=== PATIENT | female | born 1960 | race African-American/Black ===

== ENCOUNTER 2016-08-08 11:25 | Emergency (ER) | payer OTHER ==
[2016-08-08 11:37] VITALS: BP 136/89
--- NOTE | 2016-08-08 12:30 | XRAY Preliminary Report ---
Exam: XR Ribs 2 View LT IMPRESSION: No rib fracture identified. [facility] SITE ID: [id number]
--- NOTE | 2016-08-08 12:33 | XRAY Report ---
EXAM: BILATERAL RIB RADIOGRAPHY EXAM DATE: 08/08/2016 12:01 PM. CLINICAL HISTORY: Left chest wall trauma.? Rib fracture. COMPARISON: None. TECHNIQUE: 3 views. FINDINGS: Bones: Normal. No fracture or bone lesion. Lungs: No focal opacities evident. No pneumothorax or pleural effusions. Mediastinum: Heart and cardiomediastinal contours are unremarkable. Other: None. IMPRESSION: No rib fracture identified. [facility] Referring Provider Line: [phone] SITE ID: [id number]
--- NOTE | 2016-08-08 13:47 | ED Physician Documentation ---
PD HPI TRUNK INJURY - Stated complaint Stated Complaint: LEFT SIDE PX - Chief complaint Chief Complaint: General - History obtained from History obtained from: Patient - History of Present Illness Location: Left chest Type of injury: Blunt / blow Timing - onset: How many days ago (4) Timing - duration: Days (4) Timing - details: Abrupt onset, Still present Quality: Pain, Sharp Improved by: Rest Worsened by: Moving, Palpating, Other (inspiration) Associated symtptoms: No: Weakness, Numbness, Tingling, Swelling, Discoloration , Feel faint, Syncope Where injury occured: Home Similar symptoms before: Has not had sx before Recently seen: Not recently seen - Additional information Additional information: 56 y/o female struck her left side on a dresser about 4 days ago and this morning she developed worse pain and pain with inspiration. She has not had abdominal pain. Review of Systems Constitutional: denies: Fever Eyes: denies: Decreased vision Ears: denies: Ear pain Nose: denies: Congestion Throat: denies: Sore throat Cardiac: reports: Chest pain / pressure. 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 - Present Medications Home Medications: Ambulatory Orders Medication Instructions Recorded Confirmed Aspirin [Romero] 1 tab PO DAILY 12/17/13 08/08/16 Metoprolol Tartrate [Metoprolol 12.5 mg PO BID 08/08/16 08/08/16 Tartrate] - Allergies Allergies/Adverse Reactions: Allergies Allergy/AdvReac Type Severity Reaction Status Date / Time celecoxib [From Celebrex] Allergy Unknown Verified 08/08/16 11:37 hydrochlorothiazide Allergy Headache Verified 08/08/16 11:37 - Social History Does the pt smoke?: No Smoking Status: Never smoker Does the pt drink ETOH?: No Does the pt have substance abuse?: No - Immunizations Immunizations are current?: Yes - POLST Patient has POLST: No PD ED PE NORMAL - Vitals Vital signs reviewed: Yes (hypertension ) - General General: Alert and oriented X 3, No acute distress, Well developed/nourished - HEENT HEENT: Atraumatic, PERRL - Neck Neck: Supple, no meningeal sign, No bony TTP - Cardiac Cardiac: RRR, No murmur - Respiratory Respiratory: No respiratory distress, Clear bilaterally, Other (There is specific point tenderness to the left lateral chest wall over a specific rib ) - Abdomen Abdomen: Soft, Non tender - Back Back: No CVA TTP, No spinal TTP - Derm Derm: Normal color, Warm and dry, No rash - Psych Psych: Normal mood, Normal affect Results - Vitals Vitals: Vital Signs - 24 hr 08/08/16 11:35 Temperature 36 C L Heart Rate 71 Respiratory 14 Rate Blood Pressure 136/89 H O2 Saturation 100 Oxygen O2 Source Room air - Rads (name of study) chest with ribs Radiology: Prelim report reviewed (IMPRESSION: No rib fracture identified), EMP read indepedently, See rad report PD MEDICAL DECISION MAKING - ED course Complexity details: reviewed results, re-evaluated patient, considered differential, d/w patient ED course: 56 y/o female with a chest wall contusion four days ago has worse pain today predictably and no rib fracture she is treated with decadron after examination and will take nsaids at home as needed. Departure - Departure Disposition: 01 Home, Self Care Clinical Impression: Chest wall contusion Qualifiers: Encounter type: initial encounter Laterality: left Qualified Code(s): S20.212A - Contusion of left front wall of thorax, initial encounter Condition: Stable Instructions: ED Contusion Chest Wall Follow-Up: Vickie Stauffer MD [Primary Care Provider] -
[2016-08-08] MEDS ORDERED: DEXAMETHASONE 10 MG/ML VIAL PO STA (13:48)
== END 2016-08-08 14:04 | disposition home or self-care (01) ==
LOC: ED 11:25
DX: S20.212A Contusion of left front wall of thorax, initial encounter (principal); W22.8XXA Striking against or struck by other objects, initial encounter; I10 Essential (primary) hypertension; E78.00 Pure hypercholesterolemia, unspecified; Z79.82 Long term (current) use of aspirin; Z90.49 Acquired absence of other specified parts of digestive tract; Z90.710 Acquired absence of both cervix and uterus; Z96.649 Presence of unspecified artificial hip joint
CPT/HCPCS: 99283

== ENCOUNTER 2016-10-27 12:50 | Outpatient (CLI) | payer OTHER ==
--- NOTE | 2016-10-27 18:14 | MRI Report ---
EXAM: RIGHT CALF/TIBIA MRI WITHOUT CONTRAST EXAM DATE: 10/27/2016 01:56 PM. CLINICAL HISTORY: Swelling, mass, lump in the right lower leg. COMPARISON: None. TECHNIQUE: Multiplanar, multisequence T1-weighted and fluid-sensitive sequences of the calf/tibia wit hout contrast. Other: None. FINDINGS: Bones: No fractures or subluxations. No marrow edema. No bone lesions. Joint Spaces: Visualized portions of the ankle and knee joints are unremarkable. Tendons: Where visualized, the Achilles and plantaris tendons are intact. Musculature: No edema or fatty atrophy. Other: Just medial to the location of the marker is a small 4 mm T1 hypointense and T2 hyperintense n odule within the subcutaneous tissues (series 41, image 24). IMPRESSION: 4 mm hypointense subcutaneous nodule near the site of palpable abnormality. This may reflect an area of fibrosis or fat necrosis. Further imaging with contrast and a smaller [id number] is only recomm ended if this lesion enlarges and causes pain. [facility] MUSCULOSKELETAL [facility]IOLOGY SECTION Referring Provider Line: [phone] SITE ID: [id number]
== END 2016-10-27 12:51 | disposition home or self-care (01) ==
LOC: DI 12:50
PROVIDERS: ATTEND Nurse Practitioner Family
DX: R22.41 Localized swelling, mass and lump, right lower limb (principal)

== ENCOUNTER 2017-08-06 11:57 | Emergency (ER) | payer OTHER ==
--- NOTE | 2017-08-06 13:39 | ED Physician Documentation ---
PD HPI CHEST PAIN - Stated complaint Stated Complaint: CHEST PX/DIZZY - Chief complaint Chief Complaint: Cardiac - History obtained from History obtained from: Patient - History of Present Illness Timing - onset: Yesterday Timing - onset during: Light activity Timing - duration: Days (1) Timing - details: Gradual onset, Waxing and waning Quality: Aching, Stabbing Location: Substernal, Epigastric Radiation: Back Worsened by: Eating. No: Exertion, Inspiration Associated symptoms: Nausea. No: Shortness of air, Vomiting, Feeling faint / dizzy, Palpitations Similar symptoms before: Diagnosis (feels similar to her gallbladder problem, but is s/p CCY) Recently seen: Not recently seen Review of Systems Constitutional: denies: Fever, Chills, Myalgias Nose: denies: Rhinorrhea / runny nose, Congestion Throat: denies: Sore throat Cardiac: reports: Chest pain / pressure. denies: Palpitations, Pedal edema, Calf pain Respiratory: denies: Cough GI: reports: Abdominal Pain, Nausea. denies: Vomiting, Diarrhea : denies: Dysuria, Frequency Skin: denies: Rash, Lesions Musculoskeletal: denies: Extremity swelling Neurologic: reports: Generalized weakness. 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 - Present Medications Home Medications: Ambulatory Orders Medication Instructions Recorded Confirmed Aspirin [Romero] 1 tab PO DAILY 12/17/13 08/08/16 Metoprolol Tartrate [Metoprolol 12.5 mg PO BID 08/08/16 08/08/16 Tartrate] Lidocaine Viscous 2% [Xylocaine 5 ml PO Q4H PRN #1 bottle 08/06/17 Viscous 2%] raNITIdine [Zantac] 150 mg PO DAILY #30 tablet 08/06/17 - Allergies Allergies/Adverse Reactions: Allergies Allergy/AdvReac Type Severity Reaction Status Date / Time celecoxib [From Celebrex] Allergy Unknown Verified 08/08/16 11:37 hydrochlorothiazide Allergy Headache Verified 08/08/16 11:37 - Social History Does the pt smoke?: No Smoking Status: Never smoker Does the pt drink ETOH?: No Does the pt have substance abuse?: No - Immunizations Immunizations are current?: Yes - POLST Patient has POLST: No PD ED PE NORMAL - Vitals Vital signs reviewed: Yes - General General: Alert and oriented X 3, No acute distress, Well developed/nourished - HEENT HEENT: Ears normal, Pharynx benign - Neck Neck: Supple, no meningeal sign, No adenopathy - Cardiac Cardiac: RRR, No murmur - Respiratory Respiratory: Clear bilaterally - Abdomen Abdomen: Normal bowel sounds, Soft, Non distended, No organomegaly, Other (some tenderness epigastric area) - Female Female : Deferred - Rectal Rectal: Deferred - Back Back: No CVA TTP - Derm Derm: Normal color, Warm and dry - Extremities Extremities: No deformity, No tenderness to palpate, Normal ROM s pain, No edema , No calf tenderness / cord - Neuro Neuro: Alert and oriented X 3, No motor deficit, Normal speech Results - Vitals Vitals: Vital Signs - 24 hr 08/06/17 08/06/17 12:05 15:43 Temperature 36.4 C L Heart Rate 73 70 Respiratory 16 16 Rate Blood Pressure 146/98 H 140/88 H O2 Saturation 100 100 Oxygen O2 Source Room air - EKG (time done) 12:05 Rate: Rate (enter#) (71) Rhythm: NSR [place]: Normal Intervals: Normal CT QRS: Normal Ischemia: Normal ST segments. No: ST elevation c/w ischemia, ST depression - Labs Labs: Laboratory Tests 08/06/17 08/06/17 08/06/17 14:40 14:40 14:40 WBC 4.0 L RBC 4.63 Hgb 13.2 Hct 40.0 MCV 86.4 MCH 28.5 MCHC 33.0 RDW 14.3 Plt Count 144 MPV 8.9 Neut # 1.4 L Lymph # 2.0 [place] # 0.4 Eos # 0.1 Baso # 0.0 Absolute Nucleated RBC 0.00 Nucleated RBC % 0.0 Sodium 137 Potassium 3.7 Chloride 102 Carbon Dioxide 30 Anion Gap 5.0 L BUN 10 Creatinine 0.7 Estimated GFR (MDRD) 105 Glucose 91 Calcium 9.6 Magnesium 2.0 Total Bilirubin 0.9 AST 30 ALT 20 Alkaline Phosphatase 61 Troponin I < 0.04 B-Natriuretic Peptide Total Protein 7.5 Albumin 4.2 Globulin 3.3 Albumin/Globulin Ratio 1.3 Lipase 18 L 08/06/17 14:40 WBC RBC Hgb Hct MCV MCH MCHC RDW Plt Count MPV Neut # Lymph # [place] # Eos # Baso # Absolute Nucleated RBC Nucleated RBC % Sodium Potassium Chloride Carbon Dioxide Anion Gap BUN Creatinine Estimated GFR (MDRD) Glucose Calcium Magnesium Total Bilirubin AST ALT Alkaline Phosphatase Troponin I B-Natriuretic Peptide 38 Total Protein Albumin Globulin Albumin/Globulin Ratio Lipase PD MEDICAL DECISION MAKING - ED course Complexity details: reviewed results, re-evaluated patient (improved with GI cocktail and labs/ECG are good. ), considered differential, d/w patient Departure - Departure Disposition: Home, Self Care Clinical Impression: Epigastric pain Gastritis, acute Qualifiers: Gastritis type: unspecified gastritis Gastritis bleeding: without bleeding Qualified Code(s): K29.00 - Acute gastritis without bleeding Condition: Stable Record reviewed to determine appropriate education?: Yes Instructions: ED Gastritis Follow-Up: JUAN TORRES PA-C [Primary Care Provider] - Prescriptions: Lidocaine Viscous 2% [Xylocaine Viscous 2%] 5 ml PO Q4H PRN #1 bottle PRN Reason: Pain raNITIdine [Zantac] 150 mg PO DAILY #30 tablet Comments: Avoid acidic foods and lessen caffeine. Your symptoms seem to be coming from stomach irritation and did not appear to be heart related nor liver or pancreas. Use an acid reducing medicine such as ranitidine daily for the next month. At antacid such as Maalox or Mylanta and you can add in some lidocaine if needed for the discomfort periodically. Recheck if not improving over the next several days to week. Return if other symptoms develop. Discharge Date/Time: 08/06/17 15:44
[2017-08-06] MEDS ORDERED: MAG HYDROX/AL HYDROX/SIMETH 30 ML UDC PO STA (14:11)
[2017-08-06] MEDS ORDERED: LIDOCAINE VISCOUS 2% 15 ML UDC MM STA (14:11)
[2017-08-06 14:49] LABS: BASOPHILS % (AUTO) 0.5 %; EOSINOPHILS # (AUTO) 0.1 10^3/uL (0.0-0.7); EOSINOPHILS % (AUTO) 1.7 %; HGB - HEMOGLOBIN 13.2 g/dL (12.0-16.0); LYMPHOCYTES % (AUTO) 50.7 %; MEAN CORPUSCULAR HEMOGLOBIN 28.5 pg (27.0-31.0); MEAN CORPUSCULAR VOLUME 86.4 fL (81.0-99.0); MEAN PLATELET VOLUME 8.9 fL (7.9-10.8); MONOCYTES # (AUTO) 0.4 10^3/uL (0.0-1.0); MONOCYTES % (AUTO) 11.1 %; NEUTROPHILS # (AUTO) 1.4 10^3/uL (1.5-6.6); PLT - PLATELET COUNT 144 10^3/uL (130-450); RED BLOOD COUNT 4.63 10^6/uL (4.20-5.40); RED CELL DISTRIBUTION WIDTH 14.3 % (12.0-15.0)
[2017-08-06 15:04] LABS: ALBUMIN 4.2 g/dL (3.2-5.5); ALBUMIN/GLOBULIN RATIO 1.3 (1.0-2.2); BILIRUBIN,TOTAL 0.9 mg/dL (0.2-1.0); CALCIUM 9.6 mg/dL (8.5-10.3); CREATININE 0.7 mg/dL (0.4-1.0); TOTAL PROTEIN 7.5 g/dL (6.7-8.2)
[2017-08-06 15:44] VITALS: BP 140/88
== END 2017-08-06 15:44 | disposition home or self-care (01) ==
LOC: ED 11:57
DX: K29.00 Acute gastritis without bleeding (principal); I10 Essential (primary) hypertension; E78.00 Pure hypercholesterolemia, unspecified
CPT/HCPCS: 36415; 80053; 83690; 83735; 83880; 84484; 85025; 93005; 99283; 99284; A9270

== ENCOUNTER 2018-05-18 11:18 | Emergency (ER) | payer OTHER ==
[2018-05-18 11:53] LABS: BASOPHILS % (AUTO) 0.4 %; EOSINOPHILS # (AUTO) 0.1 10^3/uL (0.0-0.7); EOSINOPHILS % (AUTO) 1.6 %; HGB - HEMOGLOBIN 13.2 g/dL (12.0-16.0); LYMPHOCYTES # (AUTO) 1.9 10^3/uL (1.5-3.5); LYMPHOCYTES % (AUTO) 48.6 %; MEAN CORPUSCULAR HEMOGLOBIN 29.2 pg (27.0-31.0); MEAN CORPUSCULAR HGB CONC 33.6 g/dL (32.0-36.0); MEAN CORPUSCULAR VOLUME 86.9 fL (81.0-99.0); MEAN PLATELET VOLUME 8.9 fL (7.9-10.8); MONOCYTES # (AUTO) 0.6 10^3/uL (0.0-1.0); MONOCYTES % (AUTO) 14.5 %; NEUTROPHILS # (AUTO) 1.4 10^3/uL (1.5-6.6); NEUTROPHILS % (AUTO) 34.9 %; PLT - PLATELET COUNT 138 10^3/uL (130-450); RED CELL DISTRIBUTION WIDTH 13.7 % (12.0-15.0); WHITE BLOOD COUNT 3.9 x10^3/uL (4.8-10.8)
[2018-05-18 12:07] LABS: CALCIUM 9.5 mg/dL (8.5-10.3)
--- NOTE | 2018-05-18 12:13 | ED Physician Documentation ---
PD HPI URI - Stated complaint Stated Complaint: DIZZY/SOA/COUGHING - Chief complaint Chief Complaint: Cardiac - History obtained from History obtained from: Patient - History of Present Illness Timing - onset: Other (This is a very pleasant 57-year-old woman with 3 weeks of productive cough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 She is scheduled for an echocardiogram but the cough really never got addressed. She had trace hemoptysis today. She is short of breath but only with coughing. She denies pedal edema or calf pain. She does have chronic right hip pain from a prosthetic there. No fevers but she has had some night sweats and chills. No weight loss.) Review of Systems Constitutional: reports: Chills, Fatigue, Sweats. denies: Fever, Weight Loss Ears: denies: Loss of hearing, Ear pain Nose: denies: Rhinorrhea / runny nose, Congestion Throat: denies: Sore throat Cardiac: reports: Chest pain / pressure. denies: Palpitations Respiratory: reports: Cough. 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 - Present Medications Home Medications: Ambulatory Orders Medication Instructions Recorded Confirmed RX: Aspirin [Romero] 1 tab PO DAILY 12/17/13 08/08/16 Metoprolol Tartrate 12.5 mg PO BID 08/08/16 08/08/16 RX: Lidocaine Viscous 2% 5 ml PO Q4H PRN #1 bottle 08/06/17 [Xylocaine Viscous 2%] RX: raNITIdine [Zantac] 150 mg PO DAILY #30 tablet 08/06/17 RX: Albuterol Sulf [Ventolin Hfa 1 - 2 puffs INH Q4HR PRN #1 inhaler 05/18/18 Inhaler] RX: Doxycycline Hyclate 100 mg PO BID #14 capsule 05/18/18 - Allergies Allergies/Adverse Reactions: Allergies Allergy/AdvReac Type Severity Reaction Status Date / Time celecoxib [From Celebrex] Allergy Unknown Verified 05/18/18 11:26 hydrochlorothiazide Allergy Headache Verified 05/18/18 11:26 - Social History Does the pt smoke?: No Smoking Status: Never smoker Does the pt drink ETOH?: No Does the pt have substance abuse?: No - Immunizations Immunizations are current?: Yes - POLST Patient has POLST: No PD ED PE NORMAL - Vitals Vital signs reviewed: Yes - General General: Alert and oriented X 3, No acute distress - HEENT HEENT: EOMI, Dentition benign - Neck Neck: Supple, no meningeal sign, No bony TTP - Cardiac Cardiac: RRR, No murmur - Respiratory Respiratory: No respiratory distress, Clear bilaterally - Abdomen Abdomen: Non tender - Back Back: No CVA TTP, No spinal TTP - Derm Derm: Normal color, Warm and dry - Extremities Extremities: No edema, No calf tenderness / cord - Neuro Neuro: Alert and oriented X 3, Normal speech Results - Vitals Vitals: Vital Signs - 24 hr 05/18/18 05/18/18 05/18/18 11:20 12:37 12:39 Temperature 36.1 C L Heart Rate 62 63 61 Respiratory 18 20 16 Rate Blood Pressure 165/111 H 149/108 H 155/109 H O2 Saturation 98 100 99 Oxygen O2 Source Room air - EKG (time done) 1134 Rate: Rate (enter#) (62) Rhythm: NSR [place]: LAD QRS: LVH Ischemia: Non specific changes Computer interpretation: Agree with computer - Labs Labs: Laboratory Tests 05/18/18 05/18/18 05/18/18 11:46 11:46 11:46 WBC 3.9 L RBC 4.50 Hgb 13.2 Hct 39.1 MCV 86.9 MCH 29.2 MCHC 33.6 RDW 13.7 Plt Count 138 MPV 8.9 Neut # (Auto) 1.4 L Lymph # (Auto) 1.9 [place] # (Auto) 0.6 Eos # (Auto) 0.1 Baso # (Auto) 0.0 Absolute Nucleated RBC 0.00 Nucleated RBC % 0.0 Sodium 139 Potassium 3.7 Chloride 101 Carbon Dioxide 30 Anion Gap 8.0 Glucose 64 L Calcium 9.5 Troponin I < 0.04 - Rads (name of study) 1v chest Radiology: EMP read contemporaneously (NAD) PD MEDICAL DECISION MAKING - ED course ED course: This is a 57-year-old woman with 3 weeks of productive cough. No other findings to suggest PE other than trace hemoptysis today. There were incidental findings on an outpatient x-ray and she is going for an outpatient echo. Given the timeframe she does fit criteria for trial of antibiotics for bronchitis. Departure - Departure Disposition: Home, Self Care Clinical Impression: Bronchitis Condition: Good Record reviewed to determine appropriate education?: Yes Instructions: ED Bronchitis Asthmatic Prescriptions: RX: Albuterol Sulf [Ventolin Hfa Inhaler] 1 - 2 puffs INH Q4HR PRN #1 inhaler PRN Reason: Shortness Of Air/Wheezing RX: Doxycycline Hyclate 100 mg PO BID #14 capsule Comments: Go directly for your echocardiogram as scheduled. Return for new or worsening symptoms. Follow-up with your doctor as scheduled. Your blood pressure was elevated today on check into the emergency department. This does not mean that you have hypertension, it is a common phenomenon to come to the emergency department and have elevated blood pressure. I recommend that you see your primary care physician within the week to have it rechecked when you are feeling better. Discharge Date/Time: 05/18/18 12:43
--- NOTE | 2018-05-18 12:18 | XRAY Report ---
Reason: Chest Pain Procedure Date: 05/18/2018 Accession Number: [id number] / [id number] Procedure: XR - Chest 1 View X-Ray CPT Code: 24411 FULL RESULT: EXAM: CHEST RADIOGRAPHY EXAM DATE: 05/18/2018 11:49 AM. CLINICAL HISTORY: Chest Pain. COMPARISON: RIBS 2 VIEW LT 08/08/2016 11:45 AM. TECHNIQUE: 1 view. FINDINGS: Lungs/Pleura: No focal opacities evident. No pleural effusion. No pneumothorax. Mediastinum: Heart and mediastinal contours are notable for aortic calcification. Other: None. IMPRESSION: No acute cardiopulmonary abnormality demonstrated. [facility]
[2018-05-18] MEDS ORDERED: DOXYCYCLINE 100 MG TABLET PO STA (12:26)
[2018-05-18 12:39] VITALS: BP 155/109
[2018-05-18 15:38] LABS: ALBUMIN 4.1 g/dL (3.2-5.5); ALBUMIN/GLOBULIN RATIO 1.2 (1.0-2.2); BILIRUBIN,TOTAL 1.1 mg/dL (0.2-1.0); CREATININE 0.8 mg/dL (0.4-1.0); TOTAL PROTEIN 7.5 g/dL (6.7-8.2)
== END 2018-05-18 12:43 | disposition home or self-care (01) ==
LOC: ED 11:18
DX: J40 Bronchitis, not specified as acute or chronic (principal); I10 Essential (primary) hypertension; I51.7 Cardiomegaly; R94.31 Abnormal electrocardiogram [ECG] [EKG]; E78.00 Pure hypercholesterolemia, unspecified; Z96.649 Presence of unspecified artificial hip joint
CPT/HCPCS: 36415; 71045; 80053; 83690; 84484; 85025; 93005; 93306; 99283; A9270

== ENCOUNTER 2018-05-18 12:46 | Outpatient (CLI) | payer OTHER | END 2018-05-18 12:47 | disposition home or self-care (01) | LOC: DI 12:46 | PROVIDERS: ATTEND Family Medicine | DX: I10 Essential (primary) hypertension (principal); I51.7 Cardiomegaly | CPT/HCPCS: 93306 ==

== ENCOUNTER 2018-07-15 03:18 | Emergency (ER) | payer OTHER ==
--- NOTE | 2018-07-15 03:33 | ED Physician Documentation ---
PD HPI ABD PAIN - Stated complaint Stated Complaint: ABD PX - Chief complaint Chief Complaint: Abd Pain - History obtained from History obtained from: Patient - History of Present Illness Timing - onset: How many hours ago (an hour ago got up to have BM and had firm, not hard, BM. Soon after done, she had onset of lower abd cramping and urge for another BM. SHe says this was then very watery and foamy brown, followed by some dripping of red blood. She was concerned about it.) Timing - duration: Hours (1) Timing - details: Abrupt onset, Still present Quality: Cramping, Aching, Pain Location: Suprapubic, LLQ Radiation: No: Lower back, Left flank, Right flank Improved by: BM Worsened by: No: Breathing, Position, Palpation Associated symptoms: Nausea, Diarrhea (once episode), Hematochezia. No: Fever, Vomiting, Melena, Dysuria Similar symptoms before: Has not had sx before Recently seen: Not recently seen Review of Systems Constitutional: denies: Fever, Chills Nose: denies: Rhinorrhea / runny nose, Congestion Throat: denies: Sore throat Cardiac: denies: Chest pain / pressure Respiratory: denies: Cough GI: reports: Abdominal Pain (just overnight now), Nausea, Diarrhea, Bloody / black stool. 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, Hysterectomy - Present Medications Home Medications: Ambulatory Orders Medication Instructions Recorded Confirmed Aspirin [Romero] 1 tab PO DAILY 12/17/13 08/08/16 Metoprolol Tartrate 12.5 mg PO BID 08/08/16 08/08/16 Lidocaine Viscous 2% [Xylocaine 5 ml PO Q4H PRN #1 bottle 08/06/17 Viscous 2%] raNITIdine [Zantac] 150 mg PO DAILY #30 tablet 08/06/17 Albuterol Sulf [Ventolin Hfa 1 - 2 puffs INH Q4HR PRN #1 inhaler 05/18/18 Inhaler] Doxycycline Hyclate 100 mg PO BID #14 capsule 05/18/18 Hydrocortisone Acetate [Anucort-Hc] 25 mg RC DAILY #6 supp.rect 07/15/18 - Allergies Allergies/Adverse Reactions: Allergies Allergy/AdvReac Type Severity Reaction Status Date / Time celecoxib [From Celebrex] Allergy Unknown Verified 07/15/18 03:27 hydrochlorothiazide Allergy Headache Verified 07/15/18 03:27 - Social History Does the pt smoke?: No Smoking Status: Never smoker Does the pt drink ETOH?: No Does the pt have substance abuse?: No - Immunizations Immunizations are current?: Yes - POLST Patient has POLST: No PD ED PE NORMAL - Vitals Vital signs reviewed: Yes - General General: Alert and oriented X 3, No acute distress, Well developed/nourished - HEENT HEENT: Moist mucous membranes, Pharynx benign - Neck Neck: Supple, no meningeal sign, No adenopathy, No JVD - Cardiac Cardiac: RRR, No murmur - Respiratory Respiratory: Clear bilaterally - Abdomen Abdomen: Normal bowel sounds, Soft, Non distended, No organomegaly, Other (mild tenderness lower abd without guarding percussion nor rebound tenderness. ) - Rectal Rectal: Other (some external hemorrhoids with mild inflammation, no bleeding. Palpable tender internal hemorrhoid as well. Watery stool in vault. Currently is not bloody looking and is guiac negative from above the hemorhhoid. ) - Back Back: No CVA TTP - Derm Derm: Normal color, Warm and dry Results - Vitals Vitals: Vital Signs - 24 hr 07/15/18 07/15/18 07/15/18 03:20 05:07 05:34 Temperature 36.7 C Heart Rate 73 82 70 Respiratory 18 16 17 Rate Blood Pressure 146/102 H 148/74 H 151/105 H O2 Saturation 99 99 100 07/15/18 05:39 Temperature Heart Rate Respiratory Rate Blood Pressure 110/76 O2 Saturation Oxygen O2 Source Room air - Labs Labs: Laboratory Tests 07/15/18 07/15/18 07/15/18 03:45 03:45 04:10 WBC 4.5 L RBC 4.42 Hgb 12.7 Hct 38.1 MCV 86.2 MCH 28.7 MCHC 33.3 RDW 13.7 Plt Count 142 MPV 9.4 Neut # (Auto) 1.5 Lymph # (Auto) 2.4 [place] # (Auto) 0.5 Eos # (Auto) 0.1 Baso # (Auto) 0.0 Absolute Nucleated RBC 0.00 Nucleated RBC % 0.1 Sodium 137 Potassium 3.6 Chloride 99 L Carbon Dioxide 26 Anion Gap 12.0 BUN 11 Creatinine 0.6 Estimated GFR (MDRD) 124 Glucose 97 Calcium 9.6 Total Bilirubin 1.2 H AST 37 ALT 18 Alkaline Phosphatase 58 Total Protein 7.4 Albumin 4.1 Globulin 3.3 Albumin/Globulin Ratio 1.2 Lipase 19 L Urine Color YELLOW Urine Clarity CLEAR Urine pH 6.0 Ur Specific [place] 1.010 Urine Protein NEGATIVE Urine Glucose (UA) NEGATIVE Urine Ketones NEGATIVE Urine Occult Blood MODERATE H Urine Nitrite NEGATIVE Urine Bilirubin NEGATIVE Urine Urobilinogen 0.2 (NORMAL) Ur Leukocyte Esterase NEGATIVE Urine RBC 0-5 Urine WBC 0-3 Ur Squamous Epith Cells FEW Squamous Urine Bacteria Rare Ur Microscopic Review INDICATED Urine Culture Comments NOT INDICATED - Rads (name of study) abd CT Radiology: Prelim report reviewed (some edema of wall of colon right side, c/w colitis. Diverticula without diverticulitis. ), See rad report PD MEDICAL DECISION MAKING - ED course Complexity details: reviewed results, re-evaluated patient (no further BMs/diarrhea nor blood while here. ), considered differential (seems likely new colitis, consider viral most likely and would not do stool studies based on single diarrheal movement. Blood sounds like it was hemorrhoidal. No signs of diverticulitis, which is what I was thinking would be the cause. ), d/w patient Departure - Departure Disposition: 01 Home, Self Care Clinical Impression: Hematochezia, Colitis, acute Hemorrhoids Qualifiers: Hemorrhoid type: unspecified Qualified Code(s): K64.9 - Unspecified hemorrhoids Condition: Stable Record reviewed to determine appropriate education?: Yes Instructions: ED Hemorrhoids, ED Hematochezia Stable Follow-Up: Yarelis Larson MD [Primary Care Provider] - Prescriptions: Hydrocortisone Acetate [Anucort-Hc] 25 mg RC DAILY #6 supp.rect Comments: You do have some hemorrhoids both external and internal and I think that was the cause of the bleeding that you had. However that would not have caused the diarrhea component nor the lower abdominal cramping. Your CT scan shows some colitis which is inflammation of a segment of the colon. This can still be transient such as stomach flu or food poisoning. However it could be bacterial as well. See if your diarrhea persists beyond 1 to 2 days. Use Imodium [id number] if needed. Tylenol or ibuprofen if needed for pains or cramps. If your diarrhea persists more than a couple of days, follow-up with your primary care and bring a sample of the diarrhea in for stool studies to evaluate evaluate for things such as C. difficile, E. coli, Salmonella etc. Discharge Date/Time: 07/15/18 05:40
[2018-07-15] MEDS ORDERED: KETOROLAC 15 MG/ML VIAL IVP STA (04:06)
[2018-07-15 04:15] LABS: BASOPHILS % (AUTO) 0.5 %; EOSINOPHILS # (AUTO) 0.1 10^3/uL (0.0-0.7); EOSINOPHILS % (AUTO) 2.3 %; HGB - HEMOGLOBIN 12.7 g/dL (12.0-16.0); LYMPHOCYTES # (AUTO) 2.4 10^3/uL (1.5-3.5); LYMPHOCYTES % (AUTO) 53.8 %; MEAN CORPUSCULAR HEMOGLOBIN 28.7 pg (27.0-31.0); MEAN CORPUSCULAR HGB CONC 33.3 g/dL (32.0-36.0); MEAN CORPUSCULAR VOLUME 86.2 fL (81.0-99.0); MEAN PLATELET VOLUME 9.4 fL (7.9-10.8); MONOCYTES # (AUTO) 0.5 10^3/uL (0.0-1.0); MONOCYTES % (AUTO) 10.5 %; NEUTROPHILS # (AUTO) 1.5 10^3/uL (1.5-6.6); NEUTROPHILS % (AUTO) 32.9 %; PLT - PLATELET COUNT 142 10^3/uL (130-450); RED BLOOD COUNT 4.42 10^6/uL (4.20-5.40); RED CELL DISTRIBUTION WIDTH 13.7 % (12.0-15.0); WHITE BLOOD COUNT 4.5 x10^3/uL (4.8-10.8)
[2018-07-15 04:19] LABS: BILIRUBIN,URINE NEGATIVE (NEGATIVE); GLUCOSE, URINE (UA) NEGATIVE (NEGATIVE); KETONES,URINE (UA) NEGATIVE (NEGATIVE); LEUKOCYTE ESTERASE, URINE NEGATIVE (NEGATIVE); NITRITE,URINE NEGATIVE (NEGATIVE); OCCULT BLOOD,URINE MODERATE (NEGATIVE); PROTEIN,URINE NEGATIVE (NEGATIVE); UROBILINOGEN,URINE 0.2 (NORMAL) E.U./dL (NORMAL)
[2018-07-15 04:26] LABS: ALBUMIN 4.1 g/dL (3.2-5.5); ALBUMIN/GLOBULIN RATIO 1.2 (1.0-2.2); BILIRUBIN,TOTAL 1.2 mg/dL (0.2-1.0); CALCIUM 9.6 mg/dL (8.5-10.3); CREATININE 0.6 mg/dL (0.4-1.0); TOTAL PROTEIN 7.4 g/dL (6.7-8.2)
[2018-07-15 04:27] LABS: CLARITY,URINE CLEAR (CLEAR)
[2018-07-15 04:29] LABS: BACTERIA,URINE Rare /HPF (None Seen); RBC,URINE 0-5 /HPF (0-5); SQUAMOUS EPITHELIAL CELL,UR FEW Squamous (<= Few)
--- NOTE | 2018-07-15 04:51 | CT Report ---
Reason: lower abd cramping and diarrhea/hematachezia Procedure Date: 07/15/2018 Accession Number: [id number] / [id number] Procedure: CT - Abdomen/Pelvis WO CPT Code: FULL RESULT: EXAM: CT ABDOMEN AND PELVIS EXAM DATE: 07/15/2018 04:26 AM. CLINICAL HISTORY: Lower abdominal cramping and diarrhea. Hematochezia. COMPARISONS: None. TECHNIQUE: Routine helical CT imaging was performed through the abdomen and pelvis. IV contrast: None. Enteric contrast: No. Reconstructions: Coronal and sagittal. In accordance with CT protocol optimization, one or more of the following dose reduction techniques were utilized for this exam: automated exposure control, adjustment of mA and/or KV based on patient size, or use of iterative reconstructive technique. FINDINGS: Lung Bases: Unremarkable. Liver: At least 3 or 4 small low-attenuation foci are seen in the liver measuring up to 1.1 cm. These may represent cysts but are too small to characterize definitively on this noncontrast examination. Gallbladder/Bile Ducts: Status post cholecystectomy. Spleen: Normal. Pancreas: Normal. Adrenal Glands: Normal. Kidneys: Possible small bilateral cysts. No masses or hydronephrosis. Peritoneal Cavity/Bowel: No bowel obstruction seen. There are some colonic diverticula. No diverticulitis seen. Right hemicolon is collapsed and appears thickened. No free air or free fluid. No lymphadenopathy. Appendix appears normal. Pelvic Organs: Streak artifact. Uterus is not seen. No obvious abnormality seen in the visualized pelvic organs. Vasculature: Mild atherosclerosis. No aortic aneurysm. Bones: Bilateral hip prostheses. Degenerative changes in the spine. Other: None. IMPRESSION: 1. Mild wall thickening in the right hemicolon which may simply represent nondistention. However, suspicious for colitis. 2. No bowel obstruction seen. 3. Colonic diverticula. No evidence of diverticulitis. Appendix appears normal. 4. At least 3 or 4 indeterminate small low attenuation liver lesions measuring up to 1.1 cm. RADIA
[2018-07-15 05:40] VITALS: BP 110/76
== END 2018-07-15 05:40 | disposition home or self-care (01) ==
LOC: ED 03:18
DX: K52.9 Noninfective gastroenteritis and colitis, unspecified (principal); K92.1 Melena; K64.8 Other hemorrhoids; K64.4 Residual hemorrhoidal skin tags; K57.30 Diverticulosis of large intestine without perforation or abscess without bleeding; K76.9 Liver disease, unspecified; I10 Essential (primary) hypertension; Z79.82 Long term (current) use of aspirin
CPT/HCPCS: 36415; 74176; 80053; 81001; 81003; 83690; 85025; 87086; 96374; 99283

== ENCOUNTER 2018-11-11 01:30 | Emergency (ER) | payer OTHER ==
--- NOTE | 2018-11-11 02:08 | ED Physician Documentation ---
PD HPI ABD PAIN - Stated complaint Stated Complaint: ABD PAIN - Chief complaint Chief Complaint: Back Pain - History obtained from History obtained from: Patient - History of Present Illness Timing - onset: How many days ago (2-3) Timing - details: Gradual onset, Constant Pain level now: 5 Quality: Pain Location: RUQ, Epigastric Radiation: Other (no radiation) Improved by: Laying still Worsened by: Moving, Other (coughing) Associated symptoms: Fever (Tmax 101 (earlier today)). No: Nausea, Vomiting, Diarrhea, Constipation Similar symptoms before: Has not had sx before Recently seen: Other (excision of RLE lipoma one week ago) Review of Systems Constitutional: reports: Fever. denies: Chills, Sweats Cardiac: reports: Reviewed and negative Respiratory: reports: Reviewed and negative GI: reports: Abdominal Pain. 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 - Present Medications Home Medications: Ambulatory Orders Medication Instructions Recorded Confirmed Aspirin [Romero] 1 tab PO DAILY 12/17/13 08/08/16 Metoprolol Tartrate 12.5 mg PO BID 08/08/16 08/08/16 Lidocaine Viscous 2% [Xylocaine 5 ml PO Q4H PRN #1 bottle 08/06/17 Viscous 2%] raNITIdine [Zantac] 150 mg PO DAILY #30 tablet 08/06/17 Albuterol Sulf [Ventolin Hfa 1 - 2 puffs INH Q4HR PRN #1 inhaler 05/18/18 Inhaler] Doxycycline Hyclate 100 mg PO BID #14 capsule 05/18/18 Hydrocortisone Acetate [Anucort-Hc] 25 mg RC DAILY #6 supp.rect 07/15/18 Amox/Clav 875/125 [Augmentin] 1 each PO Q12H #19 tablet 11/11/18 Hydrocodone/Acetaminophen 1 - 2 each PO Q6HR PRN #14 tablet 11/11/18 [Hydrocodone-Acetamin 5-325 mg] - Allergies Allergies/Adverse Reactions: Allergies Allergy/AdvReac Type Severity Reaction Status Date / Time celecoxib [From Celebrex] Allergy Unknown Verified 11/11/18 01:41 hydrochlorothiazide Allergy Headache Verified 11/11/18 01:41 - Social History Does the pt smoke?: No Smoking Status: Never smoker Does the pt drink ETOH?: No Does the pt have substance abuse?: No - Immunizations Immunizations are current?: Yes - POLST Patient has POLST: No PD ED PE NORMAL - Vitals Vital signs reviewed: Yes - General General: Alert and oriented X 3, No acute distress, Well developed/nourished - HEENT HEENT: Moist mucous membranes - Neck Neck: Supple, no meningeal sign - Cardiac Cardiac: RRR, No murmur - Respiratory Respiratory: No respiratory distress, Clear bilaterally - Abdomen Abdomen: Soft, Non distended, Other (RLQ tenderness without rebound or guarding) - Back Back: No CVA TTP - Derm Derm: Normal color, Warm and dry, No rash Results - Vitals Vitals: Vital Signs - 24 hr 11/11/18 11/11/18 11/11/18 03:37 04:27 04:57 Temperature 36.6 C Heart Rate 71 73 66 Respiratory 14 14 14 Rate Blood Pressure 133/87 H 140/90 H 132/98 H O2 Saturation 99 100 97 Oxygen O2 Source Room air - Labs Labs: Microbiology 11/11/18 02:05 Urine Culture - Preliminary Urine,Clean Catch CULTURE IN PROGRESS. RESULTS TO FOLLOW. Laboratory Tests 11/11/18 11/11/18 11/11/18 02:05 02:30 02:30 WBC 7.5 RBC 4.18 L Hgb 11.7 L Hct 35.7 L MCV 85.4 MCH 28.0 MCHC 32.8 RDW 13.8 Plt Count 145 MPV 11.0 H Neut # (Auto) 4.1 Lymph # (Auto) 2.2 [place] # (Auto) 1.1 H Eos # (Auto) 0.0 Baso # (Auto) 0.0 Absolute Nucleated RBC 0.00 Nucleated RBC % 0.0 Sodium 140 Potassium 3.9 Chloride 102 Carbon Dioxide 30 Anion Gap 8.0 BUN 10 Creatinine 0.9 Estimated GFR (MDRD) 78 L Glucose 103 H Calcium 9.2 Total Bilirubin 1.0 AST 23 ALT 16 Alkaline Phosphatase 50 Total Protein 6.5 L Albumin 3.6 Globulin 2.9 Albumin/Globulin Ratio 1.2 Lipase 21 L Urine Color YELLOW Urine Clarity CLEAR Urine pH 6.0 Ur Specific [place] <=1.005 Urine Protein NEGATIVE Urine Glucose (UA) NEGATIVE Urine Ketones NEGATIVE Urine Occult Blood TRACE-LYSE Urine Nitrite NEGATIVE Urine Bilirubin NEGATIVE Urine Urobilinogen 0.2 (NORMAL) Ur Leukocyte Esterase TRACE H Urine RBC 0-5 Urine WBC 0-3 Ur Squamous Epith Cells FEW Squamous Urine Bacteria Rare Ur Microscopic Review INDICATED Urine Culture Comments INDICATED - Rads (name of study) CT A/P Radiology: Prelim report reviewed, See rad report PD MEDICAL DECISION MAKING - ED course Complexity details: reviewed old records, reviewed results, re-evaluated patient, considered differential, d/w patient Departure - Departure Disposition: 01 Home, Self Care Clinical Impression: Diverticulitis Condition: Good Instructions: ED Diverticulitis Follow-Up: Yarelis Larson MD [Primary Care Provider] - Prescriptions: Hydrocodone/Acetaminophen [Hydrocodone-Acetamin 5-325 mg] 1 - 2 each PO Q6HR PRN #14 tablet PRN Reason: Pain Amox/Clav 875/125 [Augmentin] 1 each PO Q12H #19 tablet Comments: As we discussed, the CT scan shows an area of inflammation of the colon where you are having pain. While this is suspicious for diverticulitis, there are other possible causes of this finding such as malignancy (this is unlikely but cannot be ruled out with the CT scan). For this reason, it is very important to follow up with your primary care provider to see if further testing is needed Discharge Date/Time: 11/11/18 05:21
[2018-11-11 02:14] LABS: BILIRUBIN,URINE NEGATIVE (NEGATIVE); GLUCOSE, URINE (UA) NEGATIVE (NEGATIVE); KETONES,URINE (UA) NEGATIVE (NEGATIVE); LEUKOCYTE ESTERASE, URINE TRACE (NEGATIVE); NITRITE,URINE NEGATIVE (NEGATIVE); OCCULT BLOOD,URINE TRACE-LYSE (NEGATIVE); PROTEIN,URINE NEGATIVE (NEGATIVE); UROBILINOGEN,URINE 0.2 (NORMAL) E.U./dL (NORMAL)
[2018-11-11 02:29] LABS: CLARITY,URINE CLEAR (CLEAR)
[2018-11-11 02:32] LABS: BACTERIA,URINE Rare /HPF (None Seen); RBC,URINE 0-5 /HPF (0-5); SQUAMOUS EPITHELIAL CELL,UR FEW Squamous (<= Few)
[2018-11-11 02:39] LABS: BASOPHILS % (AUTO) 0.1 %; EOSINOPHILS % (AUTO) 0.4 %; HGB - HEMOGLOBIN 11.7 g/dL (12.0-16.0); LYMPHOCYTES # (AUTO) 2.2 10^3/uL (1.5-3.5); LYMPHOCYTES % (AUTO) 28.9 %; MEAN CORPUSCULAR HGB CONC 32.8 g/dL (32.0-36.0); MEAN CORPUSCULAR VOLUME 85.4 fL (81.0-99.0); MONOCYTES # (AUTO) 1.1 10^3/uL (0.0-1.0); MONOCYTES % (AUTO) 14.8 %; NEUTROPHILS # (AUTO) 4.1 10^3/uL (1.5-6.6); NEUTROPHILS % (AUTO) 55.5 %; PLT - PLATELET COUNT 145 10^3/uL (130-450); RED BLOOD COUNT 4.18 10^6/uL (4.20-5.40); RED CELL DISTRIBUTION WIDTH 13.8 % (12.0-15.0); WHITE BLOOD COUNT 7.5 x10^3/uL (4.8-10.8)
[2018-11-11 02:54] LABS: ALBUMIN 3.6 g/dL (3.2-5.5); ALBUMIN/GLOBULIN RATIO 1.2 (1.0-2.2); CALCIUM 9.2 mg/dL (8.5-10.3); CREATININE 0.9 mg/dL (0.4-1.0); TOTAL PROTEIN 6.5 g/dL (6.7-8.2)
[2018-11-11] MEDS ORDERED: IOVERSOL 320 100 ML VIAL IVP ONE ×2 (03:02→03:32)
--- NOTE | 2018-11-11 03:49 | CT Report ---
Reason: RLQ pain Procedure Date: 11/11/2018 Accession Number: [id number] / [id number] Procedure: CT - Abdomen/Pelvis W CPT Code: FULL RESULT: EXAM: CT ABDOMEN AND PELVIS EXAM DATE: 11/11/2018 03:29 AM. CLINICAL HISTORY: Acute right-sided pain. Fever and nausea. COMPARISONS: ABDOMEN/PELVIS W/O 07/15/2018 4:17 AM. TECHNIQUE: Routine helical CT imaging was performed through the abdomen and pelvis. IV contrast: OPTI 320 100ML. Enteric contrast: No. Reconstructions: Coronal and sagittal. In accordance with CT protocol optimization, one or more of the following dose reduction techniques were utilized for this exam: automated exposure control, adjustment of mA and/or KV based on patient size, or use of iterative reconstructive technique. FINDINGS: Lung Bases: Unremarkable. Liver: Multiple small low-attenuation liver lesions probably representing cysts. However, some are too small to characterize. Gallbladder/Bile Ducts: Status post cholecystectomy. Dilated common duct measuring up to about 12 mm. Spleen: Normal. Pancreas: Normal. Adrenal Glands: Normal. Kidneys: Small bilateral cysts. No masses or hydronephrosis. Peritoneal Cavity/Bowel: There appears to be segmental wall thickening and inflammation in the ascending colon. There are some colonic diverticula. No abscess is seen. No free air or free fluid is identified. No bowel obstruction is seen. Appendix appears normal. Pelvic Organs: Not well seen due to a large amount of streak artifact. Vasculature: No aneurysms or other significant abnormality. Bones: Bilateral hip prostheses. Osteopenia. Degenerative changes in the spine. Other: None. IMPRESSION: 1. Wall thickening and inflammation involving the ascending colon. This could represent diverticulitis. Differential diagnosis would include localized colitis. Malignancy also in the differential. 2. No abscess identified. 3. Multiple small liver lesions which may represent cysts. Some are too small to characterize. RADIA
[2018-11-11] MEDS ORDERED: HYDROmorphone 1 MG/ML CARPUJECT IVP STA (04:19)
[2018-11-11] MEDS ORDERED: AMOX/CLAV 875 MG/125 MG TABLET PO STA (04:20)
[2018-11-11 05:02] VITALS: BP 132/98
== END 2018-11-11 05:21 | disposition home or self-care (01) ==
LOC: ED 01:30
DX: K57.32 Diverticulitis of large intestine without perforation or abscess without bleeding (principal); I10 Essential (primary) hypertension
CPT/HCPCS: 36415; 74177; 80053; 81001; 83690; 85025; 87086; 96374; 99283; 99284; A9270; J1170; Q9967; 81003

== ENCOUNTER 2018-11-13 09:05 | Emergency (ER) | payer OTHER ==
--- NOTE | 2018-11-13 10:19 | ED Physician Documentation ---
PD HPI ABD PAIN - Stated complaint Stated Complaint: RT SIDE/ABD PX - Chief complaint Chief Complaint: Abd Pain - History obtained from History obtained from: Patient - History of Present Illness Timing - onset: How many days ago (few) Timing - duration: Days (few) Timing - details: Gradual onset, Waxing and waning (She says she did feel better yesterday after starting the antibiotics the day before. However the pain was back again some today but not as bad as originally. She thought it would continue to improve and stay away and was here for recheck.) Quality: Cramping, Aching, Pain Location: Periumbilical, RLQ, Suprapubic Radiation: No: Chest, Left flank, Right flank Improved by: Laying still Worsened by: Moving. No: Eating, Breathing, Palpation Associated symptoms: No: Fever, Nausea, Vomiting, Diarrhea, Constipation, Dysuria Recently seen: Emergency Dept (2 days ago) Review of Systems Constitutional: reports: Myalgias. denies: Fever, Chills Nose: denies: Rhinorrhea / runny nose, Congestion Throat: denies: Sore throat Cardiac: denies: Chest pain / pressure Respiratory: denies: Dyspnea, Cough GI: reports: Abdominal Pain, Nausea. 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 - Present Medications Home Medications: Ambulatory Orders Medication Instructions Recorded Confirmed RX: Aspirin [Romero] 1 tab PO DAILY 12/17/13 08/08/16 Metoprolol Tartrate 12.5 mg PO BID 08/08/16 08/08/16 RX: Lidocaine Viscous 2% 5 ml PO Q4H PRN #1 bottle 08/06/17 [Xylocaine Viscous 2%] RX: raNITIdine [Zantac] 150 mg PO DAILY #30 tablet 08/06/17 RX: Albuterol Sulf [Ventolin Hfa 1 - 2 puffs INH Q4HR PRN #1 inhaler 05/18/18 Inhaler] RX: Doxycycline Hyclate 100 mg PO BID #14 capsule 05/18/18 Hydrocortisone Acetate [Anucort-Hc] 25 mg RC DAILY #6 supp.rect 07/15/18 Amox/Clav 875/125 [Augmentin] 1 each PO Q12H #19 tablet 11/11/18 Hydrocodone/Acetaminophen 1 - 2 each PO Q6HR PRN #14 tablet 11/11/18 [Hydrocodone-Acetamin 5-325 mg] - Allergies Allergies/Adverse Reactions: Allergies Allergy/AdvReac Type Severity Reaction Status Date / Time celecoxib [From Celebrex] Allergy Unknown Verified 11/13/18 09:10 hydrochlorothiazide Allergy Headache Verified 11/13/18 09:10 - Social History Does the pt smoke?: No Smoking Status: Never smoker Does the pt drink ETOH?: No Does the pt have substance abuse?: No - Immunizations Immunizations are current?: Yes - POLST Patient has POLST: No PD ED PE NORMAL - Vitals Vital signs reviewed: Yes - General General: Alert and oriented X 3, No acute distress, Well developed/nourished - Cardiac Cardiac: RRR, No murmur - Respiratory Respiratory: Clear bilaterally - Abdomen Abdomen: Normal bowel sounds, Soft, Non distended, No organomegaly, Other (Mild tenderness without any percussion rebound or referred tenderness. The pain is in the mid abdomen to lower mid abdomen. There is no CVA tenderness. Bowel sounds are present and normally active.) - Back Back: No CVA TTP - Derm Derm: Normal color, Warm and dry - Neuro Neuro: Alert and oriented X 3, No motor deficit, Normal speech Results - Vitals Vitals: Vital Signs - 24 hr 11/13/18 11/13/18 09:10 10:54 Temperature 37.1 C Heart Rate 74 63 Respiratory 15 14 Rate Blood Pressure 131/93 H 147/104 H O2 Saturation 98 97 Oxygen O2 Source Room air PD MEDICAL DECISION MAKING - ED course Complexity details: considered differential (She was treated for diverticulitis starting 2 days ago. Given the mild findings on the CT scan and her benign exam today, I do not feel that there is concern for perforation or abscess. Its its reasonable that she has had some up-and-down pain with just being the second day of antibiotics. I would have her continue it for another 2-3 more days and see if she has more consistent improvement and could also add some anti- inflammatories. She is to return if worsening or fevers or vomiting or other concerns.), d/w patient Departure - Departure Disposition: 01 Home, Self Care Clinical Impression: Diverticulitis Abdominal pain Qualifiers: Abdominal location: periumbilical Qualified Code(s): R10.33 - Periumbilical pain Condition: Stable Record reviewed to determine appropriate education?: Yes Follow-Up: Yarelis Larson MD [Primary Care Provider] - Comments: Stay well-hydrated. I would continue the Augmentin for now. Add an anti- inflammatory such as naproxen or ibuprofen 2 tablets 3 times a day with food for the next week as well. Recheck if still not improving consistently over the next 2 to 3 days more and return if worsening. Discharge Date/Time: 11/13/18 10:54
[2018-11-13] MEDS ORDERED: IBUPROFEN 600 MG TABLET PO STA (10:32)
[2018-11-13 10:55] VITALS: BP 147/104
== END 2018-11-13 10:54 | disposition home or self-care (01) ==
LOC: ED 09:05
DX: K57.32 Diverticulitis of large intestine without perforation or abscess without bleeding (principal); I10 Essential (primary) hypertension; Z79.82 Long term (current) use of aspirin
CPT/HCPCS: 99282; 99284; A9270

== ENCOUNTER 2019-02-21 12:59 | Outpatient (CLI) | payer OTHER ==
--- NOTE | 2019-02-22 10:11 | MRI Report ---
Reason: RT ROTATOR CUFF INJURY Procedure Date: 02/21/2019 Accession Number: [id number] / [id number] Procedure: MRI - Shoulder RT W/O CPT Code: Final Report FULL RESULT: EXAM: RIGHT SHOULDER MRI WITHOUT CONTRAST EXAM DATE: 02/21/2019 02:22 PM. CLINICAL HISTORY: Right rotator cuff injury. COMPARISON: None. TECHNIQUE: Multiplanar, multisequence T1-weighted and fluid-sensitive sequences of the shoulder without contrast. Other: None. FINDINGS: Evaluation is mildly limited by patient motion. Acromioclavicular Region: The acromion is type II. Severe acromioclavicular osteoarthropathy as evidenced by bony hypertrophy. The coracoacromial and coracoclavicular ligaments are intact. A moderate amount of fluid is in the subacromial/subdeltoid bursa. Glenohumeral Region: No subluxation. A mild to moderate effusion is seen. The articular cartilage is unremarkable. The glenohumeral ligaments and joint capsule are unremarkable. Bone Marrow: No fracture, marrow edema or bone lesions. Labrum: The labrum is unremarkable on this nonarthrographic study. Musculature/Rotator Cuff: The subscapularis tendon demonstrates moderate tendinosis. Supraspinatus tendon has a full-thickness tear of the anterior 1.4 cm of tendon. There is retraction of 2.1 cm. The posterior 1.7 cm of the supraspinatus tendon has a partial-thickness, joint-sided tear that is 4 cm in length and 50% in thickness. The infraspinatus tendon has a partial-thickness joint-sided tear of the anterior 1.8 cm of the tendon. The tear is 3.7 cm in length and up to 50% in thickness. The teres minor tendon is intact. No edema or fatty atrophy. Biceps Tendon: Biceps tendon is mildly thickened with some increased T2 signal. Fluid is in the biceps tendon sheath. Other: The subcutaneous tissues are unremarkable. IMPRESSION: 1. Severe acromioclavicular osteoarthropathy. 2. Moderate subacromial/subdeltoid bursitis. 3. Mild to moderate glenohumeral effusion. 4. Moderate tendinosis of the subscapularis tendon. 5. Full- and partial-thickness tear of the supraspinatus tendon. 6. Partial-thickness tear of the infraspinatus tendon. 7. Moderate biceps tendinosis with biceps tenosynovitis. RADIA
== END 2019-02-21 13:00 | disposition home or self-care (01) ==
LOC: DI 12:59
PROVIDERS: ATTEND Family Medicine
DX: M19.011 Primary osteoarthritis, right shoulder (principal); M75.51 Bursitis of right shoulder; M25.411 Effusion, right shoulder; S46.011A Strain of muscle(s) and tendon(s) of the rotator cuff of right shoulder, initial encounter; M75.21 Bicipital tendinitis, right shoulder

== ENCOUNTER 2019-03-23 11:22 | Emergency (ER) | payer OTHER ==
[2019-03-23] MEDS ORDERED: PROPARACAINE 0.5% OPHTH DROPS 15 ML LEFTEYE STA (12:09)
[2019-03-23] MEDS ORDERED: ERYTHROMYCIN OPHTH OINT 1 GM TUBE LEFTEYE STA (12:23)
--- NOTE | 2019-03-23 12:26 | ED Physician Documentation ---
PD HPI OPHTHO - Stated complaint Stated Complaint: LT EYE PX - Chief complaint Chief Complaint: Heent - History obtained from History obtained from: Patient - History of Present Illness Timing - onset: Last night (58-year-old woman with chronically dry eyes, last night her eyes were tubing drier than normal and she was scratching them. 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, Hysterectomy - Present Medications Home Medications: Ambulatory Orders Medication Instructions Recorded Confirmed Aspirin [Romero] 1 tab PO DAILY 12/17/13 08/08/16 Metoprolol Tartrate 12.5 mg PO BID 08/08/16 08/08/16 Lidocaine Viscous 2% [Xylocaine 5 ml PO Q4H PRN #1 bottle 08/06/17 Viscous 2%] raNITIdine [Zantac] 150 mg PO DAILY #30 tablet 08/06/17 Albuterol Sulf [Ventolin Hfa 1 - 2 puffs INH Q4HR PRN #1 inhaler 05/18/18 Inhaler] Doxycycline Hyclate 100 mg PO BID #14 capsule 05/18/18 Hydrocortisone Acetate [Anucort-Hc] 25 mg RC DAILY #6 supp.rect 07/15/18 Amox/Clav 875/125 [Augmentin] 1 each PO Q12H #19 tablet 11/11/18 Hydrocodone/Acetaminophen 1 - 2 each PO Q6HR PRN #14 tablet 11/11/18 [Hydrocodone-Acetamin 5-325 mg] Erythromycin Base [Erythromycin 1 appful OP 5XD 7 Days #1 oint...g. 03/23/19 Ophthalmic Ointment] - Allergies Allergies/Adverse Reactions: Allergies Allergy/AdvReac Type Severity Reaction Status Date / Time celecoxib [From Celebrex] Allergy Unknown Verified 03/23/19 11:34 hydrochlorothiazide Allergy Headache Verified 03/23/19 11:34 - Social History Does the pt smoke?: No Smoking Status: Never smoker Does the pt drink ETOH?: No Does the pt have substance abuse?: No - Immunizations Immunizations are current?: Yes - POLST Patient has POLST: No PD ED PE NORMAL - Vitals Vital signs reviewed: Yes - General General: Alert and oriented X 3, No acute distress - HEENT HEENT: PERRL, EOMI, Other (Globes are soft, there is no foreign body identified in the left eye. She does have a small corneal abrasion inferolateral to the visual axis measuring about 1 x 2 mm.) - Neck Neck: Supple, no meningeal sign, No bony TTP - Neuro Neuro: Alert and oriented X 3, Normal speech Results - Vitals Vitals: Vital Signs - 24 hr 03/23/19 11:35 Temperature 36.9 C Heart Rate 70 Respiratory 14 Rate Blood Pressure 160/100 H O2 Saturation 100 Oxygen O2 Source Room air PD MEDICAL DECISION MAKING - ED course ED course: 58-year-old woman with corneal abrasion. Her eyes were flushed for the foreign body sensation but no foreign body was identified. She is placed on topical erythromycin and follow-up was advised. Departure - Departure Disposition: 01 Home, Self Care Clinical Impression: Corneal abrasion, left Qualifiers: Encounter type: initial encounter Qualified Code(s): S05.02XA - Injury of conjunctiva and corneal abrasion without foreign body, left eye, initial encounter Condition: Good Record reviewed to determine appropriate education?: Yes Instructions: ED Eye Injury Corneal Abrasion Prescriptions: Erythromycin Base [Erythromycin Ophthalmic Ointment] 1 appful OP 5XD 7 Days #1 oint...g. Comments: Follow-up with your order make up clerk on Thursday for further evaluation and treatment. Return for new or worsening symptoms.
[2019-03-23 12:43] VITALS: BP 166/115
== END 2019-03-23 12:44 | disposition home or self-care (01) ==
LOC: ED 11:22
DX: S05.02XA Injury of conjunctiva and corneal abrasion without foreign body, left eye, initial encounter (principal); X58.XXXA Exposure to other specified factors, initial encounter; I10 Essential (primary) hypertension; Z79.82 Long term (current) use of aspirin
CPT/HCPCS: 99282; 99283; J3490

== ENCOUNTER 2019-04-20 12:29 | Outpatient (CLI) | payer OTHER ==
--- NOTE | 2019-04-20 17:05 | MRI Report ---
Reason: CHRONIC LT LAT FOOT PAIN, DIFFICULTY WALKING Procedure Date: 04/20/2019 Accession Number: [id number] / [id number] Procedure: MRI - Ankle LT W/O CPT Code: Final Report FULL RESULT: EXAM: LEFT ANKLE/HINDFOOT MRI WITHOUT CONTRAST EXAM DATE: 04/20/2019 01:03 PM. CLINICAL HISTORY: Chronic left lateral foot pain, difficulty walking. COMPARISON: None. TECHNIQUE: Multiplanar, multisequence T1-weighted and fluid-sensitive sequences of the ankle/hindfoot without contrast. Other: None. FINDINGS: Bones: Probable enchondroma proximal fifth metatarsal shaft. Focal marrow edema posterior aspect talus. Moderate spurring inferior calcaneal tuberosity. Possible focal 5 mm erosion superior calcaneal tuberosity (image 13 series 401) at the level of the retrocalcaneal bursa. Articular Cartilage: Unremarkable. Ligaments: The anterior and posterior tibiofibular, anterior and posterior talofibular, and calcaneofibular ligaments are intact. The deep and superficial deltoid ligaments are intact. Partial tear distal spring ligament (image 11 series 901). Anterior Tendons: The tibialis anterior, extensor hallucis longus, and extensor digitorum longus tendons are unremarkable. Medial Tendons: Negative for flexor tendon tear. Mild tenosynovitis posterior tibialis tendon and flexor digitorum longus tendon. Lateral Tendons: Focal grade 2 tear peroneus longus tendon undersurface cuboid associated with a lateral aspect 1 cm synovial cyst (image 8 series 901). Grade 2 tear distal peroneus brevis tendon. Mild tenosynovitis of proximal peroneal tendons. Achilles Tendon: The Achilles tendon is unremarkable. Musculature: No edema or fatty atrophy. Other: No effusions. Cyst 9 mm tarsal sinus. No plantar fasciitis. Mild subcutaneous edema superficial to the proximal flexor tendons and proximal peroneal tendons. IMPRESSION: 1. Mild tenosynovitis proximal peroneal tendons. 2. Grade II tear peroneus longus tendon at the undersurface of the cuboid associated with 1 cm lateral synovial cyst. 3. Grade II tear distal peroneus brevis tendon. 4. Partial tear proximal and distal spring ligament. RADIA
== END 2019-04-20 12:30 | disposition home or self-care (01) ==
LOC: DI 12:29
PROVIDERS: ATTEND Podiatrist
DX: M65.872 Other synovitis and tenosynovitis, left ankle and foot (principal); S96.812A Strain of other specified muscles and tendons at ankle and foot level, left foot, initial encounter; M71.372 Other bursal cyst, left ankle and foot

== ENCOUNTER 2019-09-30 23:10 | Emergency (ER) | payer OTHER ==
--- NOTE | 2019-10-01 00:18 | ED Physician Documentation ---
History of Present Illness - Stated complaint Stated Complaint: RT HIP PX/POST SURGERY - Chief complaint Chief Complaint: Ext Problem - History obtained from History obtained from: Patient, Family - History of Present Illness Timing: How many days ago (12) - Additonal information Additional information: 59-year-old female had a right hip revision done 2 weeks ago and developed swelling to the right leg about 2 days later. She has swelling to the right knee and pain behind the knee and thigh. Review of Systems Constitutional: denies: Fever Eyes: denies: Decreased vision Ears: denies: Ear pain Nose: reports: Rhinorrhea / runny nose, Congestion Throat: denies: Sore throat Cardiac: denies: Chest pain / pressure, Palpitations Respiratory: reports: Cough (allergic). denies: Dyspnea GI: denies: Abdominal Pain, Nausea, Vomiting, Constipation, Diarrhea : denies: Dysuria, Frequency Musculoskeletal: reports: Extremity pain, Extremity swelling. 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 - Present Medications Home Medications: Ambulatory Orders Medication Instructions Recorded Confirmed Aspirin [Romero] 1 tab PO DAILY 12/17/13 08/08/16 Metoprolol Tartrate 12.5 mg PO BID 08/08/16 08/08/16 Lidocaine Viscous 2% [Xylocaine 5 ml PO Q4H PRN #1 bottle 08/06/17 Viscous 2%] raNITIdine [Zantac] 150 mg PO DAILY #30 tablet 08/06/17 Albuterol Sulf [Ventolin Hfa 1 - 2 puffs INH Q4HR PRN #1 inhaler 05/18/18 Inhaler] Doxycycline Hyclate 100 mg PO BID #14 capsule 05/18/18 Hydrocortisone Acetate [Anucort-Hc] 25 mg RC DAILY #6 supp.rect 07/15/18 Amox/Clav 875/125 [Augmentin] 1 each PO Q12H #19 tablet 11/11/18 Hydrocodone/Acetaminophen 1 - 2 each PO Q6HR PRN #14 tablet 11/11/18 [Hydrocodone-Acetamin 5-325 mg] Erythromycin Base [Erythromycin 1 appful OP 5XD 7 Days #1 oint...g. 03/23/19 Ophthalmic Ointment] - Allergies Allergies/Adverse Reactions: Allergies Allergy/AdvReac Type Severity Reaction Status Date / Time celecoxib [From Celebrex] Allergy Unknown Verified 09/30/19 23:27 hydrochlorothiazide Allergy Headache Verified 09/30/19 23:27 - Social History Does the pt smoke?: No Smoking Status: Never smoker Does the pt drink ETOH?: No Does the pt have substance abuse?: No - Immunizations Immunizations are current?: Yes - POLST Patient has POLST: No PD ED PE NORMAL - Vitals Vital signs reviewed: Yes (hypertensive) - General General: Alert and oriented X 3, No acute distress, Well developed/nourished - HEENT HEENT: Atraumatic, PERRL, EOMI - Cardiac Cardiac: RRR, No murmur - Respiratory Respiratory: No respiratory distress, Clear bilaterally - Abdomen Abdomen: Soft, Non tender - Back Back: No CVA TTP, No spinal TTP - Derm Derm: Normal color, Warm and dry, No rash - Extremities Extremities: Normal ROM s pain, No calf tenderness / cord, Other (The patient has large thighs bilaterally the right is larger than the left the calves are more swollen on the right than the left. 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, No motor deficit, No sensory deficit, Normal speech Eye Opening: Spontaneous Motor: Obeys Commands Verbal: Oriented GCS Score: 15 - Psych Psych: Normal mood, Normal affect Results - Vitals Vitals: Vital Signs - 24 hr 09/30/19 10/01/19 10/01/19 23:25 00:25 01:26 Temperature 36.7 C Heart Rate 75 67 66 Respiratory 18 18 20 Rate Blood Pressure 145/95 H 138/96 H 137/93 H O2 Saturation 100 98 98 10/01/19 02:19 Temperature Heart Rate 67 Respiratory 18 Rate Blood Pressure 157/99 H O2 Saturation 98 Oxygen O2 Source Room air - Rads (name of study) shasha LE Radiology: Prelim report reviewed (Impression: Right lower extremity venous duplex ultrasound negative for DVT.), EMP read indepedently, See rad report PD MEDICAL DECISION MAKING - ED course Complexity details: reviewed results, re-evaluated patient, considered differential, d/w patient, d/w family ED course: 59-year-old female with a recent right hip revision has increased swelling in her right thigh and calf and she is concerned about DVT. She has some pain in her thigh and this is not severe pain she is not taking and even Tylenol for it. She states that her main concern for visit this morning is for the possibility of DVT. There is no evidence of DVT. Departure - Departure Disposition: 01 Home, Self Care Clinical Impression: Postoperative edema Condition: Stable Instructions: ED Leg Swelling Unilateral Follow-Up: Yarelis Larson MD [Primary Care Provider] - Comments: The duplex ultrasound of your right lower extremity shows normal-appearing veins and no evidence of deep vein thrombosis (DVT)
[2019-10-01 02:43] VITALS: BP 147/95
--- NOTE | 2019-10-01 09:29 | Ultrasound Report ---
PROCEDURE: Duplex Ext Veins Right INDICATIONS: leg swelling after hip surgery TECHNIQUE: Real-time imaging, as well as color and pulse Doppler interrogation, were performed of the lower extr emity deep veins from the inguinal ligament to the popliteal fossa. COMPARISON: None. FINDINGS: The deep veins are normally compressible, and free of intraluminal thrombus. Color and pu lse Doppler demonstrate normal phasic intraluminal flow. There is normal augmentation response to di stal compression maneuver. Soft tissue edema is seen, particularly involving the calf. This study is limited by body habitus. IMPRESSION: No findings of deep venous thrombosis are seen. Note: Concordant biliary findings given by the crusher feeder upon the completion of the examination to Dr. De La Torre. Note: No significant discrepancy from the preliminary report. Reviewed by: Franck Robertson MD on 10/01/2019 8:28 AM YULIA Approved by: Franck Robertson MD on 10/01/2019 8:28 AM YULIA Station ID: [id number]
== END 2019-10-01 02:52 | disposition home or self-care (01) ==
LOC: ED 23:10
DX: T81.89XA Other complications of procedures, not elsewhere classified, initial encounter (principal); R60.0 Localized edema; Y83.1 Surgical operation with implant of artificial internal device as the cause of abnormal reaction of the patient, or of later complication, without mention of misadventure at the time of the procedure; Z96.641 Presence of right artificial hip joint; M79.651 Pain in right thigh; I10 Essential (primary) hypertension; Z79.82 Long term (current) use of aspirin
CPT/HCPCS: 99282; 99284

== ENCOUNTER 2020-03-22 12:47 | Outpatient (CLI) | payer OTHER ==
--- NOTE | 2020-03-23 12:51 | Mammography Report ---
BILATERAL DIGITAL SCREENING MAMMOGRAM 3D/2D: 03/22/2020 CLINICAL: Family history of breast cancer. Routine screening. Comparison is made to exams dated: 03/22/2019 mammogram, 11/24/2017 mammogram, and 04/03/2016 mammogram - [facility]. There are scattered fibroglandular elements in both breasts. There is a new 0.6 cm asymmetry with an indistinct margin in the left breast middle depth superior re gion seen on the mediolateral oblique view only 8 cm from the skin. There also is a new 0.6 cm asymmetry with an indistinct margin in the left breast middle depth superi or region seen on the mediolateral oblique view only 9 cm from the nipple. Additionally, there is a 1.3 cm x 0.8 cm x 11 cm oval asymmetry with a circumscribed margin in the le ft breast at 6 o'clock middle depth. This is increased in size compared to prior mammograms. No other significant masses, calcifications, or other findings are seen in either breast. IMPRESSION: INCOMPLETE: NEEDS ADDITIONAL IMAGING EVALUATION The new 0.6 cm asymmetry in the left breast middle depth superior region seen on the mediolateral obl ique view only is indeterminate. Additional views with possible ultrasound are recommended. The new 0.6 cm asymmetry in the left breast middle depth superior region seen on the mediolateral obl ique view only is indeterminate. Additional views with possible ultrasound are recommended. The 1.3 cm x 0.8 cm x 11 cm oval asymmetry in the left breast at 6 o'clock middle depth is indetermin ate. Additional views with possible ultrasound are recommended. This exam was interpreted at Station ID: [id number]. NOTE: For mammograms, a report in lay terms will be sent to the patient. Approximately 15% of breast malignancies will not be visualized mammographically. In the management of a palpable breast mass, a negative mammogram must not discourage biopsy of a clinically suspicious lesion. Electronically Signed By: Nael Anaya acr/:03/22/2020 16:15:31 ACR BI-RADS Category 0: Incomplete 3340F PARENCHYMAL PATTERN: (A) - The breast(s) demonstrate(s) scattered fibroglandular densities. BI-RADS CATEGORY: (0) - 0 Mammo and [place] [id number] Immediate follow-up LATERALITY: (B)
--- OUTSIDE RECORDS SUMMARY | 2020-03-28 01:10 | EXTERNAL MEDICAL SUMMARY RPT | Continuity of Care Document ---
:1960 Demographics Phone Unavailable Preferred Language Unknown Marital Status Unknown Sikh Affiliation Unknown Race Unknown Ethnic Group Unknown Author Organization [place] Address [address] [phone] Phone Care Team Providers Name Role Phone GALDAMEZ Unavailable Unavailable Allergies date description facility CHLORHEXIDINE [facility] HYDROCODONE [facility]ARTR[facility] OXYCODONE [facility] UNCODED NONSCREENABLE ALLERGEN [facility] hydrochlorothiazide [facility] celecoxib [facility] Social History date description facility [phone]
== END 2020-03-22 12:48 | disposition home or self-care (01) ==
LOC: DI.N 12:47
DX: Z12.31 Encounter for screening mammogram for malignant neoplasm of breast (principal); R92.8 Other abnormal and inconclusive findings on diagnostic imaging of breast; Z80.3 Family history of malignant neoplasm of breast
CPT/HCPCS: 77067

== ENCOUNTER 2020-04-24 09:56 | Outpatient (CLI) | payer OTHER ==
--- NOTE | 2020-04-25 12:45 | Mammography Report ---
UNILATERAL LEFT DIGITAL DIAGNOSTIC MAMMOGRAM 3D/2D: 04/24/2020 CLINICAL: Patient returns today to evaluate an asymmetry in left breast Additional evaluation request ed from prior study. Comparison is made to exams dated: 03/22/2020 mammogram - [facility], 03/22/2019 mammo gram, 11/24/2017 mammogram, and 04/03/2016 mammogram - [facility]. There are scattered fibroglandular elements in left breast. There is a 0.5 cm asymmetry in the left breast middle depth superior region seen on the mediolateral oblique view only. This is less prominent. Second adjacent asymmetry in not confirmed on additional views. There also is a 1.3 cm oval low density mass with a circumscribed margin in the left breast at 6 o'cl ock middle depth. No other significant masses or calcifications are seen in the breast. IMPRESSION: INCOMPLETE: NEEDS ADDITIONAL IMAGING EVALUATION 1) Asymmetry in the left breast middle depth superior region seen on the mediolateral oblique view on ly is indeterminate. -A targeted ultrasound is recommended and will immediately follow. 2) The 1.3 cm mass in the left breast at 6 o'clock middle depth resembles a cyst and is indeterminate . -A targeted ultrasound is recommended and will immediately follow. This exam was interpreted at Station ID: [id number]. NOTE: For mammograms, a report in lay terms will be sent to the patient. Approximately 15% of breast malignancies will not be visualized mammographically. In the management of a palpable breast mass, a negative mammogram must not discourage biopsy of a clinically suspicious lesion. Electronically Signed By: Dre Valles M.D. slc/:04/24/2020 11:48:03 ACR BI-RADS Category 0: Incomplete 3340F PARENCHYMAL PATTERN: (A) - The breast(s) demonstrate(s) scattered fibroglandular densities. BI-RADS CATEGORY: (0) - 0 Ultrasound [id number] Immediate follow-up LATERALITY: (B)
--- NOTE | 2020-04-25 12:45 | Ultrasound Report ---
LIMITED ULTRASOUND OF LEFT BREAST: 04/24/2020 CLINICAL: Patient returns today to evaluate a focal asymmetry in the left breast. Comparison is made to exams dated: 04/24/2020 mammogram, 03/22/2020 mammogram - [facility], 03/22/2019 mammogram, 11/24/2017 mammogram, and 04/03/2016 mammogram - [facility]. Color flow and real-time ultrasound of the left breast 12-1 o'clock and 5-6 o'clock regions were perf ormed. Mao scale images of the real-time examination were reviewed. There is a 0.3 cm oval cyst in the left breast at 6 o'clock middle depth 4 cm from the nipple. This oval cyst is hypoechoic with a well-defined boundary. This correlates with mammography findings. Co anurag flow imaging demonstrates that there is no vascularity present. Adjacent cyst measuring 0.5 cm ap pears mildly complex with a thin septation. There also is a benign 1 cm x 1 cm x 0.7 cm oval simple cyst in the left breast at 5 o'clock middle d epth 7 cm from the nipple. 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 This correlates with mammography findings. Color flow imaging demonstrate s that there is no vascularity present. No ultrasound correlate for the suspected asymmetry in the left breast superior region. IMPRESSION: PROBABLY BENIGN 1) The 0.3 cm oval cyst in the left breast at 6 o'clock 4 cm from the nipple is consistent with a com plicated cyst and is probably benign. 2) The 1 cm oval simple cyst in the left breast at 5 o'clock middle depth is benign. 3) No ultrasound correlate for the suspected asymmetry in the left breast superior region. This is pr obably benign. A follow-up mammogram and ultrasound in 6 months is recommended to demonstrate stability. Exam findings were conveyed to the patient. This exam was interpreted at Station ID: [id number]. Electronically Signed By: Dre Valles M.D. slc/:04/24/2020 13:07:00 Ultrasound BI-RADS: 3 Probably benign BI-RADS CATEGORY: (3) - 3 Mammogram 20201024 6 month follow-up LATERALITY: (B)
== END 2020-04-24 09:57 | disposition home or self-care (01) ==
LOC: DI 09:56
PROVIDERS: ATTEND Nurse Practitioner Family
DX: R92.8 Other abnormal and inconclusive findings on diagnostic imaging of breast (principal); N60.02 Solitary cyst of left breast

== ENCOUNTER 2020-07-30 12:32 | Emergency (ER) | payer OTHER ==
--- OUTSIDE RECORDS SUMMARY | 2020-07-30 12:36 | EXTERNAL MEDICAL SUMMARY RPT | Continuity of Care Document ---
:1960 Demographics Phone Unavailable Preferred Language Chadian Marital Status Unknown Zoroastrianism Affiliation Unknown Race Unknown Ethnic Group Unknown Author Organization [place] Address [address] [phone] Phone Care Team Providers Name Role Phone Neo Unavailable Unavailable Procedures date description facility 20200628 [facility] Vital Signs date measurement value source 20200628 weight_standard 109.32 lb 20200628 weight_metric 49.58 kg 20200628 temperature_standard 97.9 F 20200628 temperature_metric 36.61 C [id number] height_standard 68 in 20200628 height_metric 172.72 cm 20200628 heart_rate 72 /min 20200628 BP_systolic 140 mm[Hg] [id number] BP_diastolic 82 mm[Hg] 20200628 BMI 36.6 kg/m2
--- OUTSIDE RECORDS SUMMARY | 2020-07-30 12:55 | EXTERNAL MEDICAL SUMMARY RPT | Continuity of Care Document ---
:1960 Demographics Phone Unavailable Preferred Language Belarusian Marital Status Unknown Restoration Affiliation Unknown Race Unknown Ethnic Group Unknown Author Organization [place] Address [address] [phone] Phone Care Team Providers Name Role Phone Neo Unavailable Unavailable Procedures date description facility 20200628 [facility] Vital Signs date measurement value source 20200628 weight_standard 109.32 lb 20200628 weight_metric 49.58 kg 20200628 temperature_standard 97.9 F 20200628 temperature_metric 36.61 C [id number] height_standard 68 in 20200628 height_metric 172.72 cm 20200628 heart_rate 72 /min 20200628 BP_systolic 140 mm[Hg] [id number] BP_diastolic 82 mm[Hg] 20200628 BMI 36.6 kg/m2
--- NOTE | 2020-07-30 14:22 | ED Physician Documentation ---
History of Present Illness - Stated complaint Stated Complaint: LEFT BIG TOE PX - Chief complaint Chief Complaint: Ext Problem - History obtained from History obtained from: Patient - Additonal information Additional information: 60-year-old woman with chronic 100 foot over the past few weeks on antibiotics since 07/24 presents with persistent redness and mild pain to the left first toe. It is nonradiating, worse with range of motion of the toe, aching, gradual onset and constant. Denies fevers. Review of Systems Skin: reports: Other (celulitis and blister) Musculoskeletal: reports: Extremity pain Neurologic: denies: Focal weakness, Numbness PD PAST MEDICAL HISTORY - Past Medical History Past Medical History: Yes Cardiovascular: Hypertension, High cholesterol Respiratory: None Neuro: None Endocrine/Autoimmune: HyPOthyroidism GI: None INTERNET SYSTEMS ADMINISTRATOR: Fibroids : None HEENT: Glaucoma Psych: None Musculoskeletal: Osteoarthritis, Chronic back pain, Other Derm: None - Past Surgical History Past Surgical History: Yes General: Cholecystectomy, Colonoscopy Ortho: Hip replacement, Other /INTERNET SYSTEMS ADMINISTRATOR: section, Hysterectomy - Present Medications Home Medications: Ambulatory Orders Medication Instructions Recorded Confirmed Aspirin [Romero] 1 tab PO DAILY 12/17/13 07/30/20 Albuterol Sulf [Ventolin Hfa 1 - 2 puffs INH Q4HR PRN #1 inhaler 05/18/18 07/30/20 Inhaler] Timolol 0.5% Ophth Drops [Timoptic 1 drops LEFTEYE BID #1 bottle 11/04/19 07/30/20 0.5% Ophth Drops] Doxycycline Hyclate 100 mg PO BID 10 Days #20 tab 07/30/20 Hydrocortisone Acetate [Anucort-Hc] 25 mg RC DAILY PRN 07/30/20 07/30/20 Mupirocin 2% Oint [Bactroban 2% 1 applic TOP BID #50 gm 07/30/20 Oint] Telmisartan [Micardis] 80 mg PO DAILY 07/30/20 07/30/20 cephALEXin [Keflex] 500 mg PO QID 07/30/20 07/30/20 raNITIdine [Zantac] 150 mg PO DAILY PRN 07/30/20 07/30/20 - Allergies Allergies/Adverse Reactions: Allergies Allergy/AdvReac Type Severity Reaction Status Date / Time celecoxib [From Celebrex] Allergy Unknown Verified 07/30/20 12:35 hydrochlorothiazide Allergy Headache Verified 07/30/20 12:35 - Social History Does the pt smoke?: No Smoking Status: Never smoker Does the pt drink ETOH?: No Does the pt have substance abuse?: No - Immunizations Immunizations are current?: Yes - POLST Patient has POLST: No PD ED PE NORMAL - Vitals Vital signs reviewed: Yes - General General: Alert and oriented X 3, No acute distress, Well developed/nourished - Derm Derm: Normal color, Warm and dry, Other (mild erythema L first toe with blister to distal end. ) - Extremities Extremities: No deformity, Normal ROM s pain, Other (discomfort to palpation L first toe) Results - Vitals Vitals: Vital Signs - 24 hr 07/30/20 12:35 Temperature 36.6 C Heart Rate 80 Respiratory 16 Rate Blood Pressure 180/100 H O2 Saturation 100 Oxygen O2 Source Room air Procedures - Abscess I&D (location) Toe left Preparation: Chlorhexadine, Lidocaine 1% Incision: Incised with scalpel, Culture obtained, Other (jelly like drainage) Other: Pt tolerated well, Dressing applied, Antibiotic prescribed PD MEDICAL DECISION MAKING - ED course ED course: 60-year-old woman presented with mild erythema to left first toe refractory to oral Keflex. Antibiotic with MRSA coverage prescribed. I incised and drained the blister at the distal end of the toe from which the erythema appears to be originating and sent for wound culture. She will follow up with podiatry. Return precautions given. Departure - Departure Disposition: 01 Home, Self Care Clinical Impression: Cellulitis Condition: Good Instructions: Cellulitis Dc Prescriptions: Mupirocin 2% Oint [Bactroban 2% Oint] 1 applic TOP BID #50 gm Doxycycline Hyclate 100 mg PO BID 10 Days #20 tab Comments: You are seen in the emergency department for a mild left foot infection. I drained the infection and sent it for wound culture. I am going to put you on a stronger antibiotic and a topical antibiotic. You should follow-up with podiatry this week. Return to the emergency department if you develop any new or worsening symptoms or have other concerns. [employer] [facility] [address] [id number]
[2020-07-30 14:29] VITALS: BP 141/105
== END 2020-07-30 14:44 | disposition home or self-care (01) ==
LOC: ED 12:32
DX: L03.032 Cellulitis of left toe (principal); I10 Essential (primary) hypertension
CPT/HCPCS: 10060; 87070; 87205

== ENCOUNTER 2021-12-18 07:33 | Day surgery (SDC) | payer OTHER ==
[~2021-12-18 07:33] MED LIST: ACETAMINOPHEN 500 MG TABLET PO ONE
[2021-12-18] MEDS ORDERED: LIDOCAINE MPF 2%-EPI 1:200000 20 ML VIAL ONE (07:51)
[2021-12-18] MEDS ORDERED: BUPIVACAINE 0.5% PF 30 ML VIAL ONE (07:51)
[2021-12-18] MEDS ORDERED: LACTATED RINGERS 1,000 ML IV ONE (08:18)
[2021-12-18] MEDS ORDERED: MIDAZOLAM 2 MG/2 ML VIAL ONE (08:34)
[2021-12-18] MEDS ORDERED: fentaNYL 100 MCG/2 ML VIAL ONE (08:34)
[2021-12-18] MEDS ORDERED: PROPOFOL 200 MG/20 ML VIAL IVP ONE (08:35)
--- NOTE | 2021-12-18 08:46 | ANESTHESIA ---
Pre-Anesthesia VS, & Labs - Diagnosis L 4th trigger finger - Procedure L 4th trigger finger release Vital Signs: Temp Pulse Resp BP Pulse Ox O2 Flow Rate 36.5 C 69 11 L 132/98 H 98 12/18/21 08:08 12/18/21 08:08 12/18/21 08:08 12/18/21 08:08 12/18/21 08:08 Height: 5 ft 8 in Weight (kg): 112 kg Body Mass Index: 37.5 BMI Classification: Obese - NPO >8 hours - Is Patient ?: No - Lab Results Lab results reviewed: Yes Home Medications and Allergies Home Medications: Ambulatory Orders Atorvastatin Calcium 40 mg PO DAILY 12/13/21 Fluticasone [Flonase] 1 sprays BRAULIO QPM 12/13/21 Terbinafine [LamISIL] 250 mg PO QPM 12/13/21 Timolol 0.5% Ophth Drops [Timoptic 0.5% Ophth Drops] 1 drops EACHEYE BID 12/13/21 amLODIPine [Norvasc] 5 mg PO QPM 12/13/21 Telmisartan [Micardis] 80 mg PO DAILY 07/30/20 Atorvastatin Calcium 40 mg PO DAILY 12/13/21 Fluticasone [Flonase] 1 sprays BRAULIO QPM 12/13/21 Terbinafine [LamISIL] 250 mg PO QPM 12/13/21 Timolol 0.5% Ophth Drops [Timoptic 0.5% Ophth Drops] 1 drops EACHEYE BID 12/13/21 amLODIPine [Norvasc] 5 mg PO QPM 12/13/21 Allergies/Adverse Reactions: Allergies Allergy/AdvReac Type Severity Reaction Status Date / Time celecoxib [From Celebrex] Allergy Unknown Verified 07/30/20 12:35 hydrochlorothiazide Allergy Headache Verified 07/30/20 12:35 Anes History & Medical History - Anesthetic History Anesthesia Complications: reports: No previous complications Family history of Anesthesia Complications: Denies Family history of Malignant Hyperthermia: Denies - Medical History Cardiovascular: reports: Hypertension, High cholesterol, Murmur Pulmonary: reports: None Gastrointestinal: reports: None Urinary: reports: None Neuro: reports: None Musculoskeletal: reports: Osteoarthritis, Chronic back pain, Other Endocrine/Autoimmune: reports: HyPOthyroidism Blood Disorders: reports: None Skin: reports: None Smoking Status: Never smoker - Surgical History General: reports: Cholecystectomy, Colonoscopy Gynecologic: reports: section, Hysterectomy Orthopedic: reports: Hip replacement, Other Exam General: Alert, Oriented x3, Cooperative Dental: WNL Mouth Openin Fingerbreadth Neck Mobility: Normal Mallampati classification: III Thyromental Distance: 4-6 cm Respiratory: Lungs clear, Normal breath sounds, No respiratory distress Cardiovascular: Regular rate Neurological: Normal speech Mental/Cognitive Status: Alert/Oriented X3, Normal for patient Cognitive Status: Within normal limits Plan Anesthesia Type: Total IV Consent for Procedure(s) Verified and Reviewed: Yes Code Status: Attempt Resuscitation ASA classification: 2-Mild systemic disease Is this case an emergency?: No
[2021-12-18] MEDS ORDERED: oxyCODONE 5 MG TABLET PO PRN (09:15)
[2021-12-18] MEDS ORDERED: BUPIVACAINE 0.5% PF 30 ML VIAL INFIL ONE (09:15)
[2021-12-18] MEDS ORDERED: LIDOCAINE MPF 2%-EPI 1:200000 20 ML VIAL SUBQ ONE (09:15)
[2021-12-18] MEDS ORDERED: IBUPROFEN 600 MG TABLET PO PRN (09:15)
[2021-12-18] MEDS ORDERED: LACTATED RINGERS 600 ML IV ONE (09:22)
--- NOTE | 2021-12-18 09:24 | OPERATIVE REPORT ---
Operative Report - General Procedure Date: 12/18/21 Planned Procedure: Flexor tendon sheath release left fourth finger Pre-Op Diagnosis: Left fourth trigger finger Procedure Performed: Flexor tendon sheath release left fourth finger Post Op Diagnosis: Same as preoperative diagnosis - Procedure Note Primary Surgeon: Carmelo Scherer MD Secondary Surgeon: Carlota CHÁVEZ Anesthesia Provider: Nimesh Ya CRNA Anesthesia Technique: Local, Moderate sedation Estimated Blood Loss (mL): 2 Indications: This is a 61-year-old woman with painful episodes of triggering to her left fourth finger off-and-on for several months. She is tried flexor tendon sheath steroid injections with some improvement but not lasting. She had tenderness over the flexor tendon sheath and triggering of the left fourth finger on exam. Her finger range of motion was normal to the left fourth finger. She was in agreement to the surgery, flexor tendon sheath release of the left fourth finger as outpatient at [facility] and signed an informed consent. Findings: The flexor tendons appeared grossly normal after release of the flexor tendon sheath. There was no triggering of the ring finger after the flexor tendon sheath had been incised. Complications: None - Other Other Information/Narrative: The patient was brought to the operating room, placed in the supine position, left arm placed on a arm extension table. Left upper extremity was prepped and draped in a sterile manner in the usual fashion. A timeout procedure was performed by the entire operating room team and all were in agreement. 8 cc 1% Xylocaine with epinephrine was injected directly over the flexor tendon at the distal palmar crease region. After satisfactory anesthesia was achieved, a transverse 1 cm incision was made in line with the left fourth finger and at the level of the distal palmar crease. Once the skin was incised, a spreading technique was utilized to expose the flexor tendon. Right angle retractors were placed on each side of the flexor tendon. The flexor tendon sheath was identified and was released from proximal to distal using tenotomy scissors. The patient was asked to actively extend and flex her fingers and there is no sign of triggering with active motion of the left fourth finger. Wound was irrigated. The incision was closed with three 4-0 nylon sutures. A sterile Xeroform dressing was applied. The patient tolerated procedure well. A physician assistant professor of dietetics was medically necessary to help with prepping and draping, positioning, protection of vital structures, assistance during the procedure including wound closure, dressing and/or splinting.
[2021-12-18 09:59] VITALS: BP 135/91
--- NOTE | 2021-12-18 10:20 | ANESTHESIA POST OP EVALUATION ---
Anesthesia Post Eval - Post Anesthesia Eval Vitals: Last Vital Signs Temp 36.2 C L 12/18/21 09:58 Pulse 67 12/18/21 09:58 Resp 16 12/18/21 09:58 BP 135/91 H 12/18/21 09:58 Pulse Ox 99 12/18/21 09:58 O2 Flow Rate CV Function Including HR & BP: Stable Pain Control: Satisfactory Nausea & Vomiting: Negative Mental Status: Baseline Respiratory Status: Airway Patent Hydration Status: Satisfactory Anesthesia Complications: None
[2021-12-18] MEDS ORDERED: KETOROLAC 30 MG/ML VIAL ONE (10:45)
== END 2021-12-18 07:34 | disposition home or self-care (01) ==
LOC: SDS 07:33
PROVIDERS: ATTEND Orthopaedic Surgery
DX: M65.342 Trigger finger, left ring finger (principal); E66.9 Obesity, unspecified; I10 Essential (primary) hypertension; Z68.37 Body mass index [BMI] 37.0-37.9, adult
CPT/HCPCS: 26055; A9270; J7120

== ENCOUNTER 2022-03-31 13:50 | Outpatient (CLI) | payer OTHER ==
[2022-03-31 20:15] VITALS: BP 128/80
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
== END 2022-03-31 13:51 | disposition home or self-care (01) ==
LOC: SC 13:50
PROVIDERS: ATTEND Nurse Practitioner Family
DX: R06.83 Snoring (principal); R06.81 Apnea, not elsewhere classified; G47.8 Other sleep disorders; R51.9 Headache, unspecified; R41.89 Other symptoms and signs involving cognitive functions and awareness; G47.10 Hypersomnia, unspecified; E66.9 Obesity, unspecified; Z68.37 Body mass index [BMI] 37.0-37.9, adult
CPT/HCPCS: 99202; 99212

== ENCOUNTER 2022-05-01 20:30 | Outpatient (CLI) | payer OTHER | END 2022-05-01 20:31 | disposition home or self-care (01) | LOC: SC 20:30 | PROVIDERS: ATTEND Internal Medicine Pulmonary Disease | DX: G47.33 Obstructive sleep apnea (adult) (pediatric) (principal); E66.9 Obesity, unspecified; I10 Essential (primary) hypertension; Z68.37 Body mass index [BMI] 37.0-37.9, adult | CPT/HCPCS: 95810 ==

== ENCOUNTER 2022-05-09 11:05 | Outpatient (CLI) | payer OTHER ==
[2022-05-09 11:45] VITALS: BP 142/90
--- NOTE | 2022-05-09 11:45 | SLEEP CARE CONSULTATION ---
Information from patient questionnaire entered by Olga Gibson. I have reviewed and concur with the information entered by Olga Gibson. This document represents the service I personally performed and the decisions made by , Dagmar West ARNP. History of Present Illness Service Date and Time: 05/09/2022 1105 Initial [place] Sleepiness Scale score: 13 (03/31/22) Current [place] Sleepiness Scale score: 11 (05/09/22) Additional HPI information: DENISE CARL returns for follow up and results of the recently performed polysomnography. I explained the pathophysiology behind obstructive sleep apnea. We then spent quite a bit of time discussing different treatment options. For mild obstructive sleep apnea, surgery and oral appliance are alternatives to nasal CPAP therapy but in moderate or severe cases, nasal CPAP is the most effective and reliable treatment. Because apnea is primarily in supine position, then positional management therapy could be effective. Methods discussed such as positioning with pillows to prevent supine sleep. I reviewed the impact of weight changes on sleep apnea and strongly recommended losing weight. After some discussion, the patient opted to go with the nasal CPAP therapy. Nasal autoCPAP set at 4-15 cmH20 will be ordered with rationale explained. A manual titration study will be ordered if unable to find optimal pressure with office adjustments. I explained how CPAP machine works and what to expect when using the machine. Using CPAP every night in order to get used to it was emphasized. Patient advised to put CPAP mask on before getting into bed so as not to fall asleep w ithout CPAP. To assist acclimation to CPAP use, it could also be used for a short time during day while reading or watching TV. The patient was instructed to call the CPAP supplier to discuss any mechanical problem that may occur. If the mask given is uncomfortable or is difficult to keep on through the night even with adjustment, contact the CPAP supplier as many will replace with another mask style if notified before 30 days. If snoring or perceives is not getting enough air or too much air from the machine, notify this office. Patient does not drink alcohol. Patient was cautioned about risks of drowsy driving until sleepiness symptoms resolve. Patient denies drowsy driving. Sleep Study - Results Type of Sleep Study: Polysomnography (COMPLETED 05/01/22) Prior sleep studies: No Polysomnography/Home Sleep Study results: IMPRESSION: The quality of the study is good. The patient had slightly reduced sleep efficiency. The sleep architecture relatively normal considering the first-night effect. Respiratory monitoring showed mild obstructive sleep apnea-hypopnea (AHI = 11.5) associated with frequent oxyhemoglobin desaturation and mild hypoxia (arian oxygen saturation of 80%). The respiratory events occurred only during supine sleep (supine AHI = 16.6; nonsupine = 0.00). Snore was light to moderate in intensity. There was no significant periodic limb movement of sleep. Cardiac rhythm was normal sinus rhythm without significant arrhythmia. No abnormal behavior (parasomnia) observed during the night. Allergies and Home Medications Known drug allergies: Yes (celecoxib, HCTZ) Drug allergies reviewed: Yes Home medication list reviewed: Yes (no changes) Review of Systems Review of systems same as previous: No (biopsy on left thumb) Physical Exam Vital signs obtained and entered by: OLGA Garcia MA Blood Pressure: 142/90 (LEFT ARM ) Cuff size: long Heart Rate: 73 O2 Saturation: 97 Height: 5 ft 8 in Weight: 248 lb 6.4 oz Body Mass Index: 37.8 BMI Classification: Obese Impression and Plan 1. Obstructive Sleep Apnea-Hypopnea Syndrome, mild, with lowest oxygen saturation of 80%. Obviously this is the cause of the patients symptoms of unrefreshed sleep, and excessive daytime sleepiness. Positive pressure therapy could benefit hypertension and insulin resistance. As mentioned above, the patient will be started on nasal autoCPAP therapy with pressure set at 4-15 cmH2 O. Compliance guidelines also reviewed. A copy of compliance guidelines will be given for reference at check out. Because the apnea is more severe supine, I instructed to avoid sleeping supine using pillow positioning until able to start CPAP use. * Nasal auto CPAP therapy, pressure at 4-15 cm H2O. * Attempt to lose weight. * Avoid alcohol consumption near bedtime. * Avoid supine sleep until using CPAP. * The patient is again cautioned about driving until sleepiness completely resolves. * Return one month after CPAP obtained. I will assess response to therapy and co mpliance at that time. Counseling Topics: Weight loss health impact Visit Type: In Office Time Spent with Patient (minutes): 21 Provider Statement: I spent 100% of the Face to Face Visit with the patient with greater than 50% spent counseling the patient and coordination of care.
== END 2022-05-09 11:06 | disposition home or self-care (01) ==
LOC: SC 11:05
PROVIDERS: ATTEND Nurse Practitioner Family
DX: G47.33 Obstructive sleep apnea (adult) (pediatric) (principal); E66.9 Obesity, unspecified; Z68.37 Body mass index [BMI] 37.0-37.9, adult
CPT/HCPCS: 99212; 99213

== ENCOUNTER 2022-06-16 16:17 | Emergency (ER) | payer OTHER ==
[2022-06-16 16:49] LABS: BASOPHILS % (AUTO) 0.2 %; EOSINOPHILS # (AUTO) 0.1 10^3/uL (0.0-0.7); EOSINOPHILS % (AUTO) 2.2 %; HCT - HEMATOCRIT 38.4 % (37.0-47.0); HGB - HEMOGLOBIN 12.6 g/dL (12.0-16.0); LYMPHOCYTES # (AUTO) 2.1 10^3/uL (1.5-3.5); MEAN CORPUSCULAR HEMOGLOBIN 28.8 pg (27.0-31.0); MEAN CORPUSCULAR HGB CONC 32.8 g/dL (32.0-36.0); MEAN CORPUSCULAR VOLUME 87.9 fL (81.0-99.0); MEAN PLATELET VOLUME 10.3 fL (7.9-10.8); MONOCYTES # (AUTO) 0.7 10^3/uL (0.0-1.0); MONOCYTES % (AUTO) 16.9 %; NEUTROPHILS # (AUTO) 1.2 10^3/uL (1.5-6.6); NEUTROPHILS % (AUTO) 29.7 %; PLT - PLATELET COUNT 179 10^3/uL (130-450); RED BLOOD COUNT 4.37 10^6/uL (4.20-5.40); RED CELL DISTRIBUTION WIDTH 13.5 % (12.0-15.0); WHITE BLOOD COUNT 4.1 x10^3/uL (4.8-10.8)
[2022-06-16 16:50] LABS: BILIRUBIN,URINE NEGATIVE (NEGATIVE); GLUCOSE, URINE (UA) NEGATIVE (NEGATIVE); KETONES,URINE (UA) NEGATIVE (NEGATIVE); LEUKOCYTE ESTERASE, URINE NEGATIVE (NEGATIVE); NITRITE,URINE NEGATIVE (NEGATIVE); OCCULT BLOOD,URINE NEGATIVE (NEGATIVE); PROTEIN,URINE NEGATIVE (NEGATIVE); UROBILINOGEN,URINE 0.2 (NORMAL) E.U./dL (NORMAL)
--- NOTE | 2022-06-16 16:53 | ED Physician Documentation ---
History of Present Illness - Stated complaint Stated Complaint: FEMALE GI/RT SIDE PX - Chief complaint Chief Complaint: Abd Pain - Additonal information Additional information: 61-year-old female presents with several days of constipation. She is passing some stool and noticed "pellets" and she is passing gas. She does not have any nausea or vomiting and is tolerating p.o. well. She is not on any narcotics. She has tried [id number] MiraLAX without relief, no other medications for this. She states her symptoms started after taking cephalexin for his home infection. No history of bowel obstruction. She denies any dysuria urgency or frequency. Review of Systems Constitutional: reports: Reviewed and negative GI: reports: Abdominal Pain, Constipation. denies: Abdominal Swelling, Nausea, Diarrhea, Hematemesis, Bloody / black stool : reports: Reviewed and negative. denies: Dysuria Skin: reports: Reviewed and negative Musculoskeletal: reports: Reviewed and negative Neurologic: reports: Reviewed and negative PD PAST MEDICAL HISTORY - Past Medical History Past Medical History: Yes Cardiovascular: Hypertension, High cholesterol, Murmur Respiratory: None Neuro: None Endocrine/Autoimmune: HyPOthyroidism GI: None MEDICAL CONCIERGE: Fibroids : None HEENT: Chronic vision loss, Glaucoma Psych: None Musculoskeletal: Osteoarthritis, Chronic back pain, Other Derm: None - Past Surgical History Past Surgical History: Yes General: Cholecystectomy, Colonoscopy Ortho: Hip replacement, Other /MEDICAL CONCIERGE: section, Hysterectomy - Present Medications Home Medications: Ambulatory Orders Medication Instructions Recorded Confirmed Telmisartan [Micardis] 80 mg PO DAILY 07/30/20 05/09/22 Atorvastatin Calcium 40 mg PO DAILY 12/13/21 05/09/22 Fluticasone [Flonase] 1 sprays BRAULIO QPM 12/13/21 05/09/22 Terbinafine [LamISIL] 250 mg PO QPM 12/13/21 05/09/22 Timolol 0.5% Ophth Drops [Timoptic 1 drops EACHEYE BID 12/13/21 05/09/22 0.5% Ophth Drops] amLODIPine [Norvasc] 5 mg PO QPM 12/13/21 05/09/22 Bisacodyl Supp [Dulcolax Supp] 10 mg [place] DAILY PRN #10 supp 06/16/22 Lactulose 10 gm PO BID PRN #30 packet 06/16/22 - Allergies Allergies/Adverse Reactions: Allergies Allergy/AdvReac Type Severity Reaction Status Date / Time celecoxib [From Celebrex] Allergy Unknown Verified 06/16/22 16:26 hydrochlorothiazide Allergy Headache Verified 06/16/22 16:26 - Social History Does the pt smoke?: No Smoking Status: Never smoker Does the pt drink ETOH?: No Does the pt have substance abuse?: No - Immunizations Immunizations are current?: Yes - POLST Patient has POLST: No PD ED PE NORMAL - Vitals Vital signs reviewed: Yes - General General: Alert and oriented X 3, No acute distress, Well developed/nourished - HEENT HEENT: Atraumatic, Pharynx benign - Neck Neck: Supple, no meningeal sign, No JVD - Cardiac Cardiac: RRR, No murmur - Respiratory Respiratory: No respiratory distress, Clear bilaterally - Abdomen Abdomen: Normal bowel sounds, Soft, Non tender, Non distended - Back Back: No CVA TTP, No spinal TTP - Derm Derm: Normal color, Warm and dry, No rash, Other Results - Vitals Vitals: Vital Signs - 24 hr 06/16/22 16:22 Temperature 36.3 C L Heart Rate 73 Respiratory 16 Rate Blood Pressure 127/90 H O2 Saturation 97 Oxygen O2 Source Room air - Labs Labs: Laboratory Tests 06/16/22 06/16/22 06/16/22 16:43 16:44 16:44 WBC 4.1 L RBC 4.37 Hgb 12.6 Hct 38.4 MCV 87.9 MCH 28.8 MCHC 32.8 RDW 13.5 Plt Count 179 MPV 10.3 Neut # (Auto) 1.2 L Lymph # (Auto) 2.1 [place] # (Auto) 0.7 Eos # (Auto) 0.1 Baso # (Auto) 0.0 Absolute Nucleated RBC 0.00 Nucleated RBC % 0.0 Sodium 138 Potassium 3.8 Chloride 105 Carbon Dioxide 31 Anion Gap 2.0 L BUN 12 Creatinine 0.9 Estimated GFR (MDRD) 77 L Glucose 116 H Calcium 9.6 Total Bilirubin 0.9 AST 24 ALT 18 Alkaline Phosphatase 53 Total Protein 7.1 Albumin 3.9 Globulin 3.2 Albumin/Globulin Ratio 1.2 Lipase 30 Urine Color YELLOW Urine Clarity CLEAR Urine pH 6.0 Ur Specific [place] 1.010 Urine Protein NEGATIVE Urine Glucose (UA) NEGATIVE Urine Ketones NEGATIVE Urine Occult Blood NEGATIVE Urine Nitrite NEGATIVE Urine Bilirubin NEGATIVE Urine Urobilinogen 0.2 (NORMAL) Ur Leukocyte Esterase NEGATIVE Ur Microscopic Review NOT INDICATED Urine Culture Comments NOT INDICATED - Rads (name of study) No standard instances Relevant Findings:: Prelim report reviewed, See rad report PD Medical Decision Making - ED course Complexity details: reviewed results, re-evaluated patient, considered differential, d/w patient ED course: Patient presents reporting constipation. She is passing some stool with the pellets, And is passing gas. Have low suspicion for bowel obstruction. She is tolerating p.o. well and no other signs of acute abdomen, no peritoneal signs. Her labs are stable, and x-ray shows Constipation per my read but no other Acute findings. We will give her lactulose as well as as needed Bisacodyl rectally to use at home. She was encouraged to increase oral fluid intake, stay active, ensure she is eating plenty of fruits and vegetables and fiber in her diet. She can follow-up with her PCP if no improvement or return to the ER if worsening. Departure - Departure Disposition: 01 Home, Self Care Clinical Impression: Constipation Qualifiers: Constipation type: unspecified constipation type Qualified Code(s): K59.00 - Constipation, unspecified Condition: Good Instructions: ED Constipation Prescriptions: Bisacodyl Supp [Dulcolax Supp] 10 mg NH DAILY PRN #10 supp PRN Reason: Constipation Lactulose 10 gm PO BID PRN #30 packet PRN Reason: Constipation Comments: You presented with constipation. Your labs today are stable. I have given you 2 different medications to try for constipation, 1 is a liquid called lactulose that you take orally and the other is a rectal suppository. The scan because of cramping and discomfort with bowel movements but generally you feel better afterwards. Teasing sure that you are drinking plenty of oral fluids, primarily water and staying active as this will help with constipation, also ensure that you are getting adequate fiber in your diet and adequate fruits and vegetables. If no improvement, follow-up with your primary doctor this week or return to the ER if worsening.
[2022-06-16 16:58] LABS: CLARITY,URINE CLEAR (CLEAR)
[2022-06-16 17:23] LABS: ALBUMIN 3.9 g/dL (3.2-5.5); ALBUMIN/GLOBULIN RATIO 1.2 (1.0-2.2); BILIRUBIN,TOTAL 0.9 mg/dL (0.2-1.0); CALCIUM 9.6 mg/dL (8.5-10.3); CREATININE 0.9 mg/dL (0.4-1.0); POTASSIUM 3.8 mmol/L (3.5-5.0); TOTAL PROTEIN 7.1 g/dL (6.7-8.2)
[2022-06-16] MEDS ORDERED: LACTULOSE 10 GM /15 ML UDC PO STA (17:35)
--- NOTE | 2022-06-16 17:53 | XRAY Report ---
PROCEDURE: Abdomen Acute INDICATIONS: pain, constipation TECHNIQUE: One view chest and two views of the abdomen were acquired. COMPARISON: Correlation is made with prior pelvis CT, 11/02/2018 FINDINGS: Surgical changes and devices: Bilateral hip arthroplasty hardware can be seen. Cholecystectomy clips are seen. Chest: Lungs are clear. The aorta is prominent and tortuous. The cardiac contours are within normal limits. No pleural effusions. No pneumoperitoneum. Abdomen: Bowel gas pattern is normal. A moderate amount of stool can be seen within the colon. No s uspicious calcifications. Visualized solid organ contours appear normal. Bones: No suspicious bony lesions. Age-appropriate degenerative changes are seen. IMPRESSION: There is a moderate amount of stool seen within the colon. Please correlate with clinical constipatio n. Postoperative and degenerative changes are seen. Reviewed by: Franck Robertson MD on 06/16/2022 4:52 PM AKDT Approved by: Franck Robertson MD on 06/16/2022 4:52 PM AKDT Station ID: [id number]
[2022-06-16 18:06] VITALS: BP 124/88
== END 2022-06-16 18:05 | disposition home or self-care (01) ==
LOC: ED 16:17
DX: K59.00 Constipation, unspecified (principal); I10 Essential (primary) hypertension
CPT/HCPCS: 36415; 74022; 80053; 81003; 83690; 85025; 99283; 99284; A9270; 81001; 87086

== ENCOUNTER 2022-06-18 10:05 | Emergency (ER) | payer OTHER ==
--- NOTE | 2022-06-18 12:58 | ED Physician Documentation ---
PD HPI ABD PAIN - Stated complaint Stated Complaint: FEMALE GI - Chief complaint Chief Complaint: Abd Pain - History obtained from History obtained from: Patient - History of Present Illness Timing - onset: How many days ago (4-5 days of small to no BMs with feeling of lower abd fullness, occ cramps. No consistent pains.) Timing - details: Gradual onset, Still present, Waxing and waning Associated symptoms: No: Nausea, Vomiting, Diarrhea Recently seen: Emergency Dept (2 days ago, seen for this. Rx lactulose packets, but pharmacy did not have them.) Review of Systems Constitutional: denies: Fever Nose: denies: Rhinorrhea / runny nose, Congestion Throat: denies: Sore throat Respiratory: denies: Cough GI: reports: Abdominal Pain (intermittent cramping lower abd.), Constipation. 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 : None HEENT: Chronic vision loss, Glaucoma Psych: None Musculoskeletal: Osteoarthritis, Chronic back pain, Other Derm: None - Past Surgical History Past Surgical History: Yes General: Cholecystectomy, Colonoscopy Ortho: Hip replacement, Other /ELEMENTARY READING TUTOR: section, Hysterectomy - Present Medications Home Medications: Ambulatory Orders Medication Instructions Recorded Confirmed Telmisartan [Micardis] 80 mg PO DAILY 07/30/20 05/09/22 Atorvastatin Calcium 40 mg PO DAILY 12/13/21 05/09/22 Fluticasone [Flonase] 1 sprays BRAULIO QPM 12/13/21 05/09/22 Terbinafine [LamISIL] 250 mg PO QPM 12/13/21 05/09/22 Timolol 0.5% Ophth Drops [Timoptic 1 drops EACHEYE BID 12/13/21 05/09/22 0.5% Ophth Drops] amLODIPine [Norvasc] 5 mg PO QPM 12/13/21 05/09/22 Bisacodyl Supp [Dulcolax Supp] 10 mg [place] DAILY PRN #10 supp 06/16/22 Lactulose 10 gm PO BID PRN #30 packet 06/16/22 Lactulose 15 ml PO BID PRN #240 ml 06/18/22 polyethylene glycoL 3350(BULK) 17 gm PO Q2H PRN #1 each 06/18/22 [Miralax] - Allergies Allergies/Adverse Reactions: Allergies Allergy/AdvReac Type Severity Reaction Status Date / Time celecoxib [From Celebrex] Allergy Unknown Verified 06/18/22 10:25 hydrochlorothiazide Allergy Headache Verified 06/18/22 10:25 - Social History Does the pt smoke?: No Smoking Status: Never smoker Does the pt drink ETOH?: No Does the pt have substance abuse?: No - Immunizations Immunizations are current?: Yes - POLST Patient has POLST: No PD ED PE NORMAL - Vitals Vital signs reviewed: Yes - General General: Alert and oriented X 3, No acute distress, Well developed/nourished - Cardiac Cardiac: RRR, No murmur - Respiratory Respiratory: Clear bilaterally - Abdomen Abdomen: Normal bowel sounds, Soft, Non tender, Non distended - Derm Derm: Normal color, Warm and dry - Extremities Extremities: No edema, No calf tenderness / cord Results - Vitals Vitals: Oxygen O2 Source Room air - Labs Labs: Laboratory Tests 06/18/22 12:55 Urine Color LIGHT YELLOW Urine Clarity CLEAR Urine pH 7.5 Ur Specific [place] 1.010 Urine Protein NEGATIVE Urine Glucose (UA) NEGATIVE Urine Ketones NEGATIVE Urine Occult Blood NEGATIVE Urine Nitrite NEGATIVE Urine Bilirubin NEGATIVE Urine Urobilinogen 0.2 (NORMAL) Ur Leukocyte Esterase NEGATIVE Ur Microscopic Review NOT INDICATED Urine Culture Comments NOT INDICATED PD Medical Decision Making - ED course Complexity details: reviewed old records, considered differential (sounds like simple constipation. No consistent abd pain, fevers, vomiting to suggest worse process. Not tender. ), d/w patient ED course: had recent visit with labs and abd xray anyway. can try different approaches to constipation. given enema here and had some stool output. So presume can get it going better with increased Miralax or bottle lactulose rather than packets. Departure - Departure Disposition: 01 Home, Self Care Clinical Impression: Constipation, acute Condition: Stable Record reviewed to determine appropriate education?: Yes Instructions: ED Constipation Prescriptions: Lactulose 15 ml PO BID PRN #240 ml PRN Reason: Constipation polyethylene glycoL 3350(BULK) [Miralax] 17 gm PO Q2H PRN #1 each PRN Reason: Constipation Comments: Stay well-hydrated. High-fiber diet. You could also do a fiber supplement. I would try the lactulose to 3 times daily over the next few days until you start having better stools. This could work very strongly so do not overtake it. Alternatively you could use the MiraLAX every 1-2 hours through the day until your stool is moving more regularly. Again stop taking at the point that you are start having stools so that you do not over evacuate. I sent these prescriptions to [facility] pharmacy. Once you are having stool movements with this, then continue with a stool softener such as docusate daily for the next couple of weeks to maintain easy stool movement. Follow-up with your primary care as planned. Discharge Date/Time: 06/18/22 15:40
[2022-06-18 13:08] LABS: BILIRUBIN,URINE NEGATIVE (NEGATIVE); GLUCOSE, URINE (UA) NEGATIVE (NEGATIVE); KETONES,URINE (UA) NEGATIVE (NEGATIVE); LEUKOCYTE ESTERASE, URINE NEGATIVE (NEGATIVE); NITRITE,URINE NEGATIVE (NEGATIVE); OCCULT BLOOD,URINE NEGATIVE (NEGATIVE); PH,URINE 7.5 PH (5.0-7.5); PROTEIN,URINE NEGATIVE (NEGATIVE); UROBILINOGEN,URINE 0.2 (NORMAL) E.U./dL (NORMAL)
[2022-06-18 13:10] LABS: CLARITY,URINE CLEAR (CLEAR)
[2022-06-18] MEDS ORDERED: LACTULOSE 10 GM /15 ML UDC PO STA (13:28)
[2022-06-18] MEDS ORDERED: MINERAL OIL ENEMA 133 ML BOTTLE RC STA (13:28)
[2022-06-18] MEDS ORDERED: DOCUSATE SODIUM 100 MG CAPSULE PO STA (13:29)
[2022-06-18 15:20] VITALS: BP 164/110
== END 2022-06-18 15:40 | disposition home or self-care (01) ==
LOC: ED 10:05
DX: K59.00 Constipation, unspecified (principal); I10 Essential (primary) hypertension; E78.00 Pure hypercholesterolemia, unspecified; E03.9 Hypothyroidism, unspecified
CPT/HCPCS: 81003; 99283; A9270; 81001; 87086

== ENCOUNTER 2022-07-09 14:25 | Outpatient (CLI) | payer OTHER ==
[2022-07-09 15:11] VITALS: BP 128/78
--- NOTE | 2022-07-09 15:11 | SLEEP CARE CONSULTATION ---
Information from patient questionnaire entered by Cliff Gibson. I have reviewed and concur with the information entered by Cliff Gibson. This document represents the service I personally performed and the decisions made by , Dagmar West ARNP. History of Present Illness Service Date and Time: 07/09/2022 1425 Previous diagnosis: Mild, Obstructive Sleep Apnea-Hypopnea Syndrome AHI: 11.5 (in 2022) Reason for follow up: first compliance Equipment type: CPAP (RESMED Airsense 10, s/u 05/2022) Equipment obtained from: Other ([facility]; got initial supplies) Mask style: Full face (Mirage Quattro) Backup mask available: Yes (other mask) Prior sleep studies: No Type of Sleep Study: Polysomnography (COMPLETED 05/01/22) HPI additional information: DENISE CARL was diagnosed to have mild, AHI 11.5, obstructive sleep apnea- hypopnea syndrome and returned today for CPAP therapy first compliance follow- up. Sleep Study - Results Type of Sleep Study: Polysomnography (COMPLETED 05/01/22) Prior sleep studies: No CPAP Compliance Data - Data Reviewed with Patient Average duration of nightly device use: 6 HRS 9 MINS Compliance rate %: 83 (06/08/22-07/07/22; 29/30 days used) Current pressure setting (cmH2O): 4-15 (median 8.9, avg 12.4, max 13.4) Average residual AHI: 1.3 Central apnea: 0.1 Obstructive apnea: 0.6 Hypopnea: 0.6 Average large leak: 1.8 lpm Subjective Missed days of use due to: reports: mask issues (headgear slipping on head) Patient concerns: reports: air blowing in eyes, mask leak noise, nasal congestion, dry mouth, nose, throat (only with other mask), other (peters on face). denies: aerophagia, mask discomfort, condensation in mask/hose, epistaxis Observed to snore while using device: No Current pressure setting perceived as: comfortable On therapy, patient: reports: sleeping better, awakening more refreshed, being more awake and alert during the day, more rested overall, other (having less headaches). denies: drowsiness while driving Initial [place] Sleepiness Scale score: 13 (03/31/22) Current [place] Sleepiness Scale score: 11 (07/09/22) Allergies and Home Medications Known drug allergies: Yes (as listed) Drug allergies reviewed: Yes Home medication list reviewed: Yes (no changes) Allergy and home medication list: Allergies celecoxib [From Celebrex] Allergy (Verified 07/08/22 15:04) Unknown hydrochlorothiazide Allergy (Verified 07/08/22 15:04) Headache broke out in hives it is a water pill thinks this is it Review of Systems Review of systems same as previous: Yes (no changes) Physical Exam Vital signs obtained and entered by: CLIFF Garcia MA Blood Pressure: 128/78 (LEFT ARM) Cuff size: regular Heart Rate: 72 O2 Saturation: 97 Height: 5 ft 8 in Weight: 251 lb 12.8 oz Body Mass Index: 38.2 BMI Classification: Obese Impression and Plan 1. Obstructive Sleep Apnea-Hypopnea Syndrome, mild, with good treatment compliance and good apnea control. On CPAP therapy, the patient has better sleep quality and is more rested overall. Patient has significant improvement of their sleep apnea and is satisfied with current CPAP therapy. She tried a different mask but got a lot of dry mouth when using it. She went back to the Quattro and she likes it a lot better. Patient states she is having a lot less headaches since starting using the CPAP. The patients pressure will be changed to autoCPAP 10-14 cmH20 to reflect pressure being used. Patient advised to contact me if pressure change is uncomfortable so that it can be adjusted. Goals for apnea control discussed. I showed her how to adjust her humidity on the CPAP. Patient's apnea severity and rationale for treatment to reduce apnea, improve sleep quality and reduce cardiovascular and cerebrovascular events was reviewed. I also reviewed the benefit of consistent device use of CPAP for hypertension and insulin resistance. 2. Obesity, unspecified. Currently patients BMI is 38.2. Obesity increases the risk of apnea, CPAP pressure requirements and overall health risks especially cardiovascular and diabetes. Thus patient is advised to lose weight. * Change auto CPAP pressure to 10-14 cmH2O * Notify me if snoring with mask or feeling that the pressure is too much or too little * Attempt to lose weight * Call this office if any problems using CPAP * Return for follow up in 1-2 months, or sooner if concerns arise Counseling Topics: Spare mask, Weight loss health impact Visit Type: In Office Time Spent with Patient (minutes): 21 Provider Statement: I spent 100% of the Face to Face Visit with the patient with greater than 50% spent counseling the patient and coordination of care.
== END 2022-07-09 14:26 | disposition home or self-care (01) ==
LOC: SC 14:25
PROVIDERS: ATTEND Nurse Practitioner Family
DX: G47.33 Obstructive sleep apnea (adult) (pediatric) (principal); E66.9 Obesity, unspecified; Z68.38 Body mass index [BMI] 38.0-38.9, adult
CPT/HCPCS: 99212; 99213

== ENCOUNTER 2022-09-19 12:41 | Outpatient (CLI) | payer OTHER ==
--- NOTE | 2022-09-19 13:00 | Sleep Patient Instructions ---
Sleep Center Visit Summary - Patient Visit Information Reason for Visit: 4 month follow up for PAP therapy - Patient Instructions Additional Instructions: You were here for follow up of CPAP therapy. You will be continued on CPAP therapy with pressure at 10-14 cmH2O. You should follow up with sleep care in 3 months. You may contact us sooner for any questions or concerns. - Clinic Information Contact: [facility] [address] [place] [address] [email or web address] T: [phone]
--- NOTE | 2022-09-19 13:09 | SLEEP CARE CONSULTATION ---
Information from patient questionnaire entered by Cliff Gibson. I have reviewed and concur with the information entered by Cliff Gibson. This document represents the service I personally performed and the decisions made by , Dagmar West ARNP. History of Present Illness Service Date and Time: 09/19/2022 1241 Previous diagnosis: Mild, Obstructive Sleep Apnea-Hypopnea Syndrome AHI: 11.5 (in 2022) Reason for follow up: other (4 MONTH F/U ) Equipment type: CPAP (RESMED Airsense 10, s/u 05/2022) Equipment obtained from: Other ([facility]; getting supplies) Mask style: Full face (Mirage Quattro) Backup mask available: Yes (old mask) Last cushion change: 4 weeks ago Prior sleep studies: No Type of Sleep Study: Polysomnography (COMPLETED 05/01/22) HPI additional information: DENISE CARL was diagnosed to have mild, AHI 11.5, obstructive sleep apnea- hypopnea syndrome and returned today for CPAP therapy 4 month follow-up. Sleep Study - Results Type of Sleep Study: Polysomnography (COMPLETED 05/01/22) Prior sleep studies: No CPAP Compliance Data - Data Reviewed with Patient Average duration of nightly device use: 5 HRS 52 MINS Compliance rate %: 76 (05/20/22-09/16/22; 105/120 days used) Current pressure setting (cmH2O): 10-14 Average residual AHI: 1.3 Central apnea: 0.1 Obstructive apnea: 0.7 Hypopnea: 0.5 Average large leak: 2.5 L/min Subjective Missed days of use due to: reports: other (take off during night and not remember doing it) Patient concerns: reports: mask leak noise, nasal congestion, dry mouth, nose, throat (occasional). denies: aerophagia, mask discomfort, air blowing in eyes, condensation in mask/hose, epistaxis Observed to snore while using device: No Current pressure setting perceived as: comfortable On therapy, patient: reports: sleeping better, awakening more refreshed, being more awake and alert during the day, more rested overall, other (not having morning headaches). denies: drowsiness while driving Initial [place] Sleepiness Scale score: 13 (03/31/22) Current [place] Sleepiness Scale score: 9 (09/19/22) Allergies and Home Medications Known drug allergies: Yes (celcoxib, HCTZ) Drug allergies reviewed: Yes Home medication list reviewed: Yes (no changes) Allergy and home medication list: Allergies celecoxib [From Celebrex] Allergy (Verified 09/18/22 09:28) Unknown hydrochlorothiazide Allergy (Verified 09/18/22 09:28) Headache broke out in hives it is a water pill thinks this is it Review of Systems Review of systems same as previous: Yes (no changes) Physical Exam Vital signs obtained and entered by: CLIFF Garcia MA Blood Pressure: 120/72 (LEFT ARM) Cuff size: long Heart Rate: 71 O2 Saturation: 97 Height: 5 ft 9 in Weight: 251 lb 6.4 oz Body Mass Index: 37.1 BMI Classification: Obese Impression and Plan 1. Obstructive Sleep Apnea-Hypopnea Syndrome, mild, with good treatment compliance and good apnea control. On CPAP therapy, the patient has better sleep quality and is more rested overall. She tried a different style of full face mask because she was getting some oral dryness but it made a lot more leak noises and she went back to her Mirage Quattro. She was advised that she could try other full face mask styles but she wants to stay with her current style for now. She asked about pillows that she can use with a CPAP mask and I showed her some CPAP pillows examples in the office and informed her that she can obtain some with built in neck support. She voiced understanding. I will have her follow up in 3 months. Patient's apnea severity and rationale for treatment to reduce apnea, improve sleep quality and reduce cardiovascular and cerebrovascular events was reviewed. I also reviewed the benefit of consistent device use of CPAP for hypertension and insulin resistance. 2. Obesity, unspecified. Currently patients BMI is 37.1. Obesity increases the risk of apnea, CPAP pressure requirements and overall health risks especially cardiovascular and diabetes. Thus patient is advised to lose weight. * Continue auto CPAP pressure at 10-14 cmH2O * Notify me if snoring with mask or feeling that the pressure is too much or too little * Attempt to lose weight * Call this office if any problems using CPAP * Return for follow up in 3 months, or sooner if concerns arise * Counseling Topics: Spare mask, Weight loss health impact Visit Type: In Office Time Spent with Patient (minutes): 22 Provider Statement: I spent 100% of the Face to Face Visit with the patient with greater than 50% spent counseling the patient and coordination of care.
[2022-09-19 13:28] VITALS: BP 120/72
== END 2022-09-19 12:42 | disposition home or self-care (01) ==
LOC: SC 12:41
PROVIDERS: ATTEND Nurse Practitioner Family
DX: G47.33 Obstructive sleep apnea (adult) (pediatric) (principal); E66.9 Obesity, unspecified; Z68.37 Body mass index [BMI] 37.0-37.9, adult
CPT/HCPCS: 99212; 99213

== ENCOUNTER 2022-11-24 00:55 | Outpatient (CLI) | payer OTHER | END 2022-11-24 00:56 | disposition critical access hospital (66) | LOC: EMS 00:55 | DX: R42 Dizziness and giddiness (principal); R11.2 Nausea with vomiting, unspecified | CPT/HCPCS: A0425; A0427 ==

== ENCOUNTER 2022-11-24 01:16 | Emergency (ER) | payer OTHER ==
[2022-11-24] MEDS ORDERED: SODIUM CHLORIDE 0.9% 1,000 ML IV STA (01:26)
[2022-11-24] MEDS ORDERED: diazePAM INJ 5 MG/ML SYRINGE IVP STA (01:26)
--- NOTE | 2022-11-24 01:27 | ED Physician Documentation ---
History of Present Illness - Stated complaint Stated Complaint: DIZZINESS/NAUSEA - Chief complaint Chief Complaint: Neuro - History obtained from History obtained from: Patient, EMS - Additonal information Additional information: 60-year-old female with history of hypertension presents by EMS from home for vertigo with nausea and vomiting. History is obtained primarily by EMS as the patient is actively and profusely vomiting into an emesis bag. EMS reports that the patient was bending down to take off her compression socks when she felt sinus pressure with severe vertigo. Vomiting happened shortly afterwards. Patient denies history of vertigo in the past. Review of Systems GI: reports: Nausea, Vomiting Neurologic: reports: Other (vertigo) PD PAST MEDICAL HISTORY - Past Medical History Cardiovascular: Hypertension, High cholesterol, Murmur Respiratory: None Neuro: None Endocrine/Autoimmune: HyPOthyroidism GI: None HOSPITAL ACCOUNT MANAGER: Fibroids : None HEENT: Chronic vision loss, Glaucoma Psych: None Musculoskeletal: Osteoarthritis, Chronic back pain, Other Derm: None - Past Surgical History Past Surgical History: Yes General: Cholecystectomy, Colonoscopy Ortho: Hip replacement, Other /HOSPITAL ACCOUNT MANAGER: section, Hysterectomy - Present Medications Home Medications: Ambulatory Orders Medication Instructions Recorded Confirmed Telmisartan [Micardis] 80 mg PO DAILY 07/30/20 11/24/22 Fluticasone [Flonase] 1 sprays BRAULIO QPM 12/13/21 11/24/22 Terbinafine [LamISIL] 250 mg PO QPM 12/13/21 11/24/22 Timolol 0.5% Ophth Drops [Timoptic 1 drops EACHEYE BID 12/13/21 11/24/22 0.5% Ophth Drops] amLODIPine [Norvasc] 5 mg PO QPM 12/13/21 11/24/22 Bisacodyl Supp [Dulcolax Supp] 10 mg [place] DAILY PRN #10 supp 06/16/22 11/24/22 Lactulose 15 ml PO BID PRN #240 ml 06/18/22 11/24/22 polyethylene glycoL 3350(BULK) 17 gm PO Q2H PRN #1 each 06/18/22 11/24/22 [Miralax] Meclizine HCl [Motion Sickness] 25 mg PO Q6H PRN #20 tablet 11/24/22 Ondansetron Odt [Zofran] 4 mg TL Q6H PRN #10 tablet 11/24/22 - Allergies Allergies/Adverse Reactions: Allergies Allergy/AdvReac Type Severity Reaction Status Date / Time celecoxib [From Celebrex] Allergy Unknown Verified 11/24/22 01:30 hydrochlorothiazide Allergy Headache Verified 11/24/22 01:30 - Social History Does the pt smoke?: No Smoking Status: Never smoker Does the pt drink ETOH?: No Does the pt have substance abuse?: No - Immunizations Immunizations are current?: Yes - POLST Patient has POLST: No PD ED PE NORMAL - Vitals Vital signs reviewed: Yes - General General: Alert and oriented X 3, Other (uncomfortable, actively vomiting) - Neck Neck: Supple, no meningeal sign - Cardiac Cardiac: RRR, Strong equal pulses - Abdomen Abdomen: Soft, Non tender, Non distended - Derm Derm: Normal color, Warm and dry, No rash - Extremities Extremities: No deformity, Normal ROM s pain, No edema - Neuro Neuro: Alert and oriented X 3, 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 banking associate 2-12 intact, No motor deficit, Normal speech - Psych Psych: Normal mood, Normal affect (appropriate for given condition) Results - Vitals Vitals: Vital Signs - 24 hr 11/24/22 11/24/22 11/24/22 01:15 01:24 03:24 Temperature 36.4 C L Heart Rate 95 63 Respiratory 15 18 Rate Blood Pressure 158/108 H 136/91 H O2 Saturation 99 22 L 100 Oxygen O2 Source Room air - Labs Labs: Laboratory Tests 11/24/22 11/24/22 11/24/22 01:33 01:33 03:18 WBC 4.9 RBC 4.20 Hgb 12.1 Hct 36.8 L MCV 87.6 MCH 28.8 MCHC 32.9 RDW 13.5 Plt Count 156 MPV 10.6 Neut # (Auto) 1.8 Lymph # (Auto) 2.3 [place] # (Auto) 0.7 Eos # (Auto) 0.1 Baso # (Auto) 0.0 Absolute Nucleated RBC 0.00 Nucleated RBC % 0.0 Sodium 139 Potassium 3.8 Chloride 105 Carbon Dioxide 31 Anion Gap 3.0 L BUN 17 Creatinine 0.9 Estimated GFR (MDRD) 77 L Glucose 104 Calcium 9.8 Magnesium 1.6 L Total Bilirubin 0.4 AST 21 ALT 14 Alkaline Phosphatase 67 Total Protein 6.7 Albumin 4.1 Globulin 2.6 Albumin/Globulin Ratio 1.6 Urine Color YELLOW Urine Clarity CLEAR Urine pH 7.0 Ur Specific [place] 1.010 Urine Protein NEGATIVE Urine Glucose (UA) NEGATIVE Urine Ketones NEGATIVE Urine Occult Blood NEGATIVE Urine Nitrite NEGATIVE Urine Bilirubin NEGATIVE Urine Urobilinogen 0.2 (NORMAL) Ur Leukocyte Esterase NEGATIVE Ur Microscopic Review NOT INDICATED Urine Culture Comments NOT INDICATED PD Medical Decision Making - ED course Complexity details: reviewed old records, reviewed results, re-evaluated patient, considered differential, d/w patient, d/w family ED course: Severe vertigo with nausea and vomiting after bending down to remove compression socks. Description of events most consistent with peripheral etiology. We will give Valium, however will also obtain CT angio of the head and neck with noncontrast CT brain to assess for other concerning causes for vertigo. Laboratory work is reviewed, mild hypomagnesemia, however other labs are within normal limits. Patient reports significant improvement in vertigo with the Valium, endorsing mild lightheaded sensation, however the room spinning sensation has completely ceased. No further episodes of emesis. Pending CT imaging. Noncontrast CT brain unremarkable, however unable to obtain diagnostic CT angio due to contrast bolus timing. Patient continues to report resolution of vertigo, she is ambulatory without difficulty, no ataxia. No further episodes of emesis. Patient was counseled on the results of all labs and imaging including the nondiagnostic results of the CT angio and the importance of returning to the emergency department if vertigo recurs. Based on patient's history and exam this is likely be peripheral, meclizine and Zofran sent to pharmacy. Departure - Departure Disposition: 01 Home, Self Care Clinical Impression: Vertigo Nausea and vomiting Qualifiers: Vomiting type: unspecified Qualified Code(s): R11.2 - Nausea with vomiting, unspecified Condition: Stable Instructions: Meclizine, ED Vertigo Unspecified Prescriptions: Meclizine HCl [Motion Sickness] 25 mg PO Q6H PRN #20 tablet PRN Reason: Dizziness Ondansetron Odt [Zofran] 4 mg TL Q6H PRN #10 tablet PRN Reason: Nausea / Vomiting Comments: You were seen today for vertigo and nausea and vomiting. Your laboratory work was normal, the noncontrast CT of your brain was normal, however the angiography CTs that look at the blood vessels of your head and neck were nondiagnostic due to timing of the contrast bolus used to look at the blood vessels. At this time your vertigo has improved, I believe that you will do well at home, however if you have return of your vertigo it is extremely important that you come back to the emergency department for repeat testing. Please follow-up with your primary care physician. A prescription for an antivertigo medication called meclizine and an antinausea medication called Zofran have been sent to [facility] in [place]. Forms: PCP List
[2022-11-24 01:39] LABS: BASOPHILS % (AUTO) 0.2 %; EOSINOPHILS # (AUTO) 0.1 10^3/uL (0.0-0.7); EOSINOPHILS % (AUTO) 1.4 %; HCT - HEMATOCRIT 36.8 % (37.0-47.0); HGB - HEMOGLOBIN 12.1 g/dL (12.0-16.0); LYMPHOCYTES # (AUTO) 2.3 10^3/uL (1.5-3.5); LYMPHOCYTES % (AUTO) 46.6 %; MEAN CORPUSCULAR HEMOGLOBIN 28.8 pg (27.0-31.0); MEAN CORPUSCULAR HGB CONC 32.9 g/dL (32.0-36.0); MEAN CORPUSCULAR VOLUME 87.6 fL (81.0-99.0); MEAN PLATELET VOLUME 10.6 fL (7.9-10.8); MONOCYTES # (AUTO) 0.7 10^3/uL (0.0-1.0); NEUTROPHILS # (AUTO) 1.8 10^3/uL (1.5-6.6); NEUTROPHILS % (AUTO) 37.8 %; PLT - PLATELET COUNT 156 10^3/uL (130-450); RED CELL DISTRIBUTION WIDTH 13.5 % (12.0-15.0); WHITE BLOOD COUNT 4.9 x10^3/uL (4.8-10.8)
[2022-11-24 01:56] LABS: ALBUMIN 4.1 g/dL (3.2-5.5); ALBUMIN/GLOBULIN RATIO 1.6 (1.0-2.2); BILIRUBIN,TOTAL 0.4 mg/dL (0.2-1.0); CALCIUM 9.8 mg/dL (8.5-10.3); CREATININE 0.9 mg/dL (0.6-1.3); MAGNESIUM 1.6 mg/dL (1.7-2.3); POTASSIUM 3.8 mmol/L (3.5-4.5); TOTAL PROTEIN 6.7 g/dL (6.4-8.9)
[2022-11-24 03:23] LABS: BILIRUBIN,URINE NEGATIVE (NEGATIVE); GLUCOSE, URINE (UA) NEGATIVE (NEGATIVE); KETONES,URINE (UA) NEGATIVE (NEGATIVE); LEUKOCYTE ESTERASE, URINE NEGATIVE (NEGATIVE); NITRITE,URINE NEGATIVE (NEGATIVE); OCCULT BLOOD,URINE NEGATIVE (NEGATIVE); PROTEIN,URINE NEGATIVE (NEGATIVE); UROBILINOGEN,URINE 0.2 (NORMAL) E.U./dL (NORMAL)
[2022-11-24 03:24] LABS: CLARITY,URINE CLEAR (CLEAR)
[2022-11-24 03:49] VITALS: BP 136/91; O2SAT 100
--- NOTE | 2022-11-24 08:15 | CT Report ---
PROCEDURE: HEAD W/WO INDICATIONS: Severe vertigo; delay added, angio triggered early - No contrast TECHNIQUE: 4.5 mm thick angled axial sections acquired from the foramen magnum to the vertex before and after th e administration of intravenous contrast. For radiation dose reduction, the following was used: aut omated exposure control, adjustment of mA and/or kV according to patient size. CONTRAST: Opti 320 180ml COMPARISON: CT head, 08/09/2013 FINDINGS: Image quality: Excellent. CSF Spaces: Basal cisterns are patent. No extra-axial fluid collections. Ventricles are normal in size and shape. Brain: No midline shift. No intracranial bleeds or masses. No abnormal intracranial enhancement. Mao-white interface appears normal. Skull and face: Calvarium and visualized facial bones appear intact, without suspicious lesions. Sinuses: Visualized sinuses and mastoids are clear. IMPRESSION: No acute intracranial abnormalities. No significant discrepancy with the preliminary interpretation. Reviewed by: Peri Forrest MD on 11/24/2022 8:14 AM PDT Approved by: Peri Forrest MD on 11/24/2022 8:14 AM PDT Station ID: [id number]
--- NOTE | 2022-11-24 08:25 | CT Report ---
PROCEDURE: CT Angio Head/Neck INDICATIONS: SEVERE VERTIGO TECHNIQUE: After the administration of intravenous contrast, 1 mm thick sections acquired from the aortic arch t hrough the [place]. 3-dimensional stevtfo-ihcudcsuu-mthoyepman (MIP) and/or volume renderin g reformats were acquired of the central intracranial vasculature and neck separately. For radiation dose reduction, the following was used: automated exposure control, adjustment of mA and/or kV acco rding to patient size. COMPARISON: CT head with and without, 11/24/2022. FINDINGS: Image quality: Diagnostic. HEAD CT: CSF Spaces: Basal cisterns are patent. No extra-axial fluid collections. Ventricles are normal in size and shape. Brain: The brain is within normal limits for age and scanning technique. Skull and face: Calvarium and visualized facial bones appear intact, without suspicious lesions. Sinuses: Visualized sinuses and mastoids are clear. HEAD CT ANGIOGRAPHY: Inadequate contrast opacification of cerebral arteries. NECK CT ANGIOGRAPHY: Inadequate contrast opacification of cervical carotid and vertebral arteries. Soft tissues: Visualized neck soft tissues demonstrate no suspicious abnormalities. Bones: No suspicious bony lesions. Ndhxvnxo-xp-zufpaz degenerative disc and facet disease in cervica l spine. Visualized cervical spine appears normally aligned. IMPRESSION: 1. Nondiagnostic CTA due to missed timing bolus resulting in inadequate contrast opacification of mitchell table arteries, as well as cervical carotid and vertebral arteries. Recommend repeat examination as c linically indicated. Clinical symptoms persist, consider MRI for further evaluation. Findings are concordant with preliminary interpretation provided by [facility]. Reviewed by: Peri Forrest MD on 11/24/2022 8:24 AM PDT Approved by: Peri Forrest MD on 11/24/2022 8:24 AM PDT Station ID: [id number]
== END 2022-11-24 04:28 | disposition home or self-care (01) ==
LOC: EDUNIT# → ED 01:16
DX: R42 Dizziness and giddiness (principal); R11.2 Nausea with vomiting, unspecified; I10 Essential (primary) hypertension; E78.00 Pure hypercholesterolemia, unspecified; E03.9 Hypothyroidism, unspecified; Z79.899 Other long term (current) drug therapy
CPT/HCPCS: 36415; 80053; 81001; 81003; 83735; 85025; 87086; 93005; 96374; 99284

== ENCOUNTER 2022-12-30 12:22 | Outpatient (CLI) | payer OTHER ==
--- NOTE | 2022-12-30 13:23 | Sleep Patient Instructions ---
Sleep Center Visit Summary - Patient Visit Information Reason for Visit: Three month followup - Patient Instructions Additional Instructions: You were here for follow up of CPAP therapy. You will be continued on CPAP therapy with pressure at 10-14 cmH2O. You were fitted to and given a new mask to try. A F&P Simplus full face mask, medium/large cushion. If you like this you may order replacement cushions from your supply company as needed. You should follow up with sleep care in 6 months. You may contact us sooner for any questions or concerns. - Clinic Information Contact: [facility] [address] [place] [address] [email or web address] T: [phone]
[2022-12-30 13:28] VITALS: BP 131/80; O2SAT 100
--- NOTE | 2022-12-30 13:28 | SLEEP CARE CONSULTATION ---
Information from patient questionnaire entered by Cliff Gibson. I have reviewed and concur with the information entered by Cliff Gibson. This document represents the service I personally performed and the decisions made by , Dagmar West ARNP. History of Present Illness Service Date and Time: 12/30/2022 1222 Previous diagnosis: Mild, Obstructive Sleep Apnea-Hypopnea Syndrome AHI: 11.5 (in 2022) Reason for follow up: three month (F/U) Equipment type: CPAP (RESMED Airsense 10, s/u 05/2022) Equipment obtained from: Other ([facility]; getting supplies) Mask style: Full face (Mirage Quattro) Backup mask available: Yes (other) Last cushion change: 1 month Prior sleep studies: No Type of Sleep Study: Polysomnography (COMPLETED 05/01/22) HPI additional information: DENISE CARL was diagnosed to have mild, AHI 11.5, obstructive sleep apnea- hypopnea syndrome and returned today for CPAP therapy three month follow-up. Sleep Study - Results Type of Sleep Study: Polysomnography (COMPLETED 05/01/22) Prior sleep studies: No CPAP Compliance Data - Data Reviewed with Patient Average duration of nightly device use: 6 HRS 35 MIN Compliance rate %: 89 (09/26/22-12/24/22; 88/90 days used) Current pressure setting (cmH2O): 10-14 Average residual AHI: 1.7 Central apnea: 0.1 Obstructive apnea: 1.1 Average large leak: 4.9 L/min Subjective Patient concerns: reports: air blowing in eyes, mask leak noise, dry mouth, nose, throat (occasional dry mouth), other (headaches, sometimes; history of headaches ). denies: aerophagia, mask discomfort, condensation in mask/hose, nasal congestion, epistaxis Observed to snore while using device: No Current pressure setting perceived as: comfortable On therapy, patient: reports: other (not sure of any difference). denies: drowsiness while driving Initial [place] Sleepiness Scale score: 13 (03/31/22) Current [place] Sleepiness Scale score: 14 (12/30/22) Allergies and Home Medications Known drug allergies: Yes (as listed) Drug allergies reviewed: Yes Home medication list reviewed: Yes (no changes) Allergy and home medication list: Allergies celecoxib [From Celebrex] Allergy (Verified 12/29/22 09:10) Unknown hydrochlorothiazide Allergy (Verified 12/29/22 09:10) Headache broke out in hives it is a water pill thinks this is it Review of Systems Review of systems same as previous: No (trigger finger right hand) Physical Exam Vital signs obtained and entered by: CLIFF Garcia MA Blood Pressure: 131/80 (RIGHT WRIST) Cuff size: wrist Heart Rate: 65 O2 Saturation: 100 Height: 5 ft 9 in Weight: 255 lb 12.8 oz Weight change since last visit: 4 lb gain Body Mass Index: 37.8 BMI Classification: Obese Impression and Plan 1. Obstructive Sleep Apnea-Hypopnea Syndrome, mild, with good treatment compliance and good apnea control. On CPAP therapy, she is not feeling like she is more rested overall or sleeping better. She is still struggling with her CPAP mask fitting right. I fit her to a F&P Simplus full face mask, medium large cushion. She liked the fit and will try this at home. Patient's apnea severity and rationale for treatment to reduce apnea, improve sleep quality and reduce cardiovascular and cerebrovascular events was reviewed. I also reviewed the benefit of consistent device use of CPAP for hypertension and insulin r esistance. 2. Obesity, unspecified. Currently patients BMI is 37.8. She has been trying to exercise more to lose weight. She is not losing weight yet. I encouraged to continue to exercise and improve her diet. She voiced understanding. Obesity increases the risk of apnea, CPAP pressure requirements and overall health risks especially cardiovascular and diabetes. Thus patient is advised to continue to try to lose weight. * Continue auto CPAP pressure at 10-14 cmH2O * F&P Simplus M/L full face mask given to patient to try * Notify me if snoring with mask or feeling that the pressure is too much or too little * Attempt to lose weight * Call this office if any problems using CPAP * Return for follow up in 6 months, or sooner if concerns arise Mask provided: Yes Counseling Topics: Spare mask, Weight loss health impact Follow up with Sleep Care in: 6 months Visit Type: In Office Time Spent with Patient (minutes): 26 Provider Statement: I spent 100% of the Face to Face Visit with the patient with greater than 50% spent counseling the patient and coordination of care.
== END 2022-12-30 12:23 | disposition home or self-care (01) ==
LOC: SC 12:22
PROVIDERS: ATTEND Nurse Practitioner Family
DX: G47.33 Obstructive sleep apnea (adult) (pediatric) (principal); E66.9 Obesity, unspecified; Z68.37 Body mass index [BMI] 37.0-37.9, adult
CPT/HCPCS: 99212; 99213

== ENCOUNTER 2023-02-11 13:37 | Outpatient (CLI) | payer OTHER ==
--- NOTE | 2023-02-11 20:41 | Ultrasound Report ---
PROCEDURE: Duplex Lwr Ext Arterial Bilat INDICATIONS: EDEMA TECHNIQUE: Color and pulse Doppler interrogation was performed of both lower extremity arterial systems, with im age documentation. COMPARISON: None FINDINGS: Right lower extremity: Common femoral artery: 94 cm/sec, with triphasic flow. Deep femoral artery: 56 cm/sec, with triphasic flow. Proximal superficial femoral artery: 124 cm/sec, with triphasic flow. Mid superficial femoral artery: 66 cm/sec, with triphasic flow. Distal superficial femoral artery: 65 cm/sec, with triphasic flow. Popliteal artery: 48 cm/sec, with triphasic flow. Posterior tibial artery: 91 cm/sec, with triphasic flow. Anterior tibial artery/dorsalis pedis: 68/70 cm/sec, with triphasic flow. Mao-scale imaging description: Widely patent vessels Left lower extremity: Common femoral artery: 97 cm/sec, with triphasic flow. Deep femoral artery: 62 cm/sec, with triphasic flow. Proximal superficial femoral artery: 89 cm/sec, with triphasic flow. Mid superficial femoral artery: 81 cm/sec, with triphasic flow. Distal superficial femoral artery: 54 cm/sec, with triphasic flow. Popliteal artery: 97 cm/sec, with triphasic flow. Posterior tibial artery: 75 cm/sec, with triphasic flow. Anterior tibial artery/dorsalis pedis: 61/62 cm/sec, with triphasic flow. Mao-scale imaging description: Widely patent vessels IMPRESSION: Unremarkable bilateral lower extremity duplex arterial ultrasound. Reviewed by: Eduardo Grullon MD on 02/11/2023 8:39 PM PST Approved by: Eduardo Grullon MD on 02/11/2023 8:39 PM PST Station ID: [id number]
--- NOTE | 2023-02-11 20:49 | Ultrasound Report ---
PROCEDURE: Duplex Ext Veins Bilateral INDICATIONS: TANA PRECIADO NP TECHNIQUE: Real-time imaging, as well as color and pulse Doppler interrogation, were performed of the deep veins of both legs from the inguinal ligament to the popliteal fossa. Attempted visualization of the calf veins was performed. COMPARISON: None FINDINGS: The deep veins are normally compressible, and free of intraluminal thrombus. Color and pu lse Doppler demonstrate normal phasic intravascular flow. There is normal augmentation response to d istal compression maneuver. IMPRESSION: No deep venous thrombosis of the bilateral lower extremities. Reviewed by: Eduardo Grullon MD on 02/11/2023 8:48 PM PST Approved by: Eduardo Grullon MD on 02/11/2023 8:48 PM PST Station ID: [id number]
== END 2023-02-11 13:38 | disposition home or self-care (01) ==
LOC: DI 13:37
PROVIDERS: ATTEND Nurse Practitioner Family
DX: R60.0 Localized edema (principal)
CPT/HCPCS: 93925; 93970

== ENCOUNTER 2023-02-26 08:00 | Outpatient (CLI) | payer OTHER ==
--- NOTE | 2023-02-26 19:06 | XRAY Report ---
PROCEDURE: Hand 3 View RT INDICATIONS: RIGHT HAND PAIN TECHNIQUE: 3 view(s) of the hand(s) acquired. COMPARISON: None FINDINGS: Bones: No fractures or dislocations. No suspicious bony lesions. First metacarpal moderate degene rative changes Soft tissues: No suspicious soft tissue calcifications. IMPRESSION: Moderate first CMC osteoarthritis Reviewed by: Bret Ng MD on 02/26/2023 6:05 PM [place] Approved by: Bret Ng MD on 02/26/2023 6:05 PM [place] Station ID: [id number]
== END 2023-02-26 23:59 | disposition home or self-care (01) ==
LOC: DI.WOS 08:00
PROVIDERS: ATTEND Physician Assistant Surgical
DX: M18.11 Unilateral primary osteoarthritis of first carpometacarpal joint, right hand (principal)

== ENCOUNTER 2023-04-04 08:00 | Outpatient (CLI) | payer OTHER ==
[2023-04-04 19:47] LABS: BASOPHILS % (AUTO) 0.5 %; EOSINOPHILS # (AUTO) 0.1 10^3/uL (0.0-0.7); EOSINOPHILS % (AUTO) 2.1 %; HCT - HEMATOCRIT 36.7 % (37.0-47.0); HGB - HEMOGLOBIN 12.2 g/dL (12.0-16.0); LYMPHOCYTES # (AUTO) 1.8 10^3/uL (1.5-3.5); LYMPHOCYTES % (AUTO) 47.5 %; MEAN CORPUSCULAR HGB CONC 33.2 g/dL (32.0-36.0); MEAN CORPUSCULAR VOLUME 87.2 fL (81.0-99.0); MEAN PLATELET VOLUME 11.5 fL (7.9-10.8); MONOCYTES # (AUTO) 0.6 10^3/uL (0.0-1.0); MONOCYTES % (AUTO) 15.3 %; NEUTROPHILS # (AUTO) 1.3 10^3/uL (1.5-6.6); NEUTROPHILS % (AUTO) 34.6 %; PLT - PLATELET COUNT 159 10^3/uL (130-450); RED BLOOD COUNT 4.21 10^6/uL (4.20-5.40); RED CELL DISTRIBUTION WIDTH 13.4 % (12.0-15.0); WHITE BLOOD COUNT 3.8 x10^3/uL (4.8-10.8)
[2023-04-04 19:56] LABS: ALBUMIN/GLOBULIN RATIO 1.7 (1.0-2.2); BILIRUBIN,TOTAL 0.6 mg/dL (0.2-1.0); CALCIUM 9.8 mg/dL (8.5-10.3); CREATININE 0.7 mg/dL (0.6-1.3); POTASSIUM 4.1 mmol/L (3.5-4.5); TOTAL PROTEIN 6.4 g/dL (6.4-8.9)
== END 2023-04-04 23:59 | disposition home or self-care (01) ==
LOC: LAB.N 08:00
PROVIDERS: ATTEND Physician Assistant
DX: K59.00 Constipation, unspecified (principal)
CPT/HCPCS: 36415; 80053; 83690; 85025

== ENCOUNTER 2023-07-09 06:26 | Day surgery (SDC) | payer OTHER ==
[2023-07-09] MEDS: LACTATED RINGERS 1,000 ML IV ONE ×2 (06:30→08:18)
[2023-07-09] MEDS ORDERED: PROPOFOL 500 MG/50 ML 500 MG/50 ML VIAL ONE (07:09)
--- NOTE | 2023-07-09 07:24 | HISTORY & PHYSICAL EXAMINATION ---
Chief Complaint - Chief Complaint Chief Complaint: here for colonoscopy History of Present Illness - History Obtained From Records Reviewed: yes History obtained from: pt Exam Limitations: none - History of Present Illness HPI Comment/Other: here for colonoscopy for colon cancer screening. minor hemorrhoid problems, mild constipation, history colonoscopy over 10 years ago with polyps. History - Past Medical History Cardiovascular: reports: Hypertension, High cholesterol, Murmur Respiratory: reports: None Neuro: reports: None Endocrine/Autoimmune: reports: HyPOthyroidism GI: reports: None, Colon polyps HAND BRIM IRONER: reports: Fibroids : reports: None HEENT: reports: Chronic vision loss, Glaucoma Psych: reports: None Musculoskeletal: reports: Osteoarthritis, Chronic back pain, Other Derm: reports: None MRSA Hx?: No - Past Surgical History General: reports: Cholecystectomy, Colonoscopy Ortho: reports: Hip replacement, Other /HAND BRIM IRONER: reports: section, Hysterectomy - POLST Patient has POLST: No Meds/Allgy - Home Medications Home Medications: Ambulatory Orders Medication Instructions Recorded Confirmed Telmisartan [Micardis] 80 mg PO DAILY 07/30/20 07/08/23 Timolol 0.5% Ophth Drops [Timoptic 1 drops EACHEYE TID 12/13/21 07/08/23 0.5% Ophth Drops] amLODIPine [Norvasc] 5 mg PO QPM 12/13/21 07/08/23 Atorvastatin Calcium 40 mg PO DAILY 07/08/23 07/08/23 - Allergies Allergies/Adverse Reactions: Allergies Allergy/AdvReac Type Severity Reaction Status Date / Time celecoxib [From Celebrex] Allergy Unknown Verified 12/30/22 12:57 hydrochlorothiazide Allergy Headache Verified 12/30/22 12:57 Review of Systems - Other Findings Other Findings: 10 pt ros as above otherwise unremarkable Exam - Vital Signs Vital Signs: Vital Signs x48h Temp Pulse Resp BP Pulse Ox 07/09/23 06:30 36.5 C 71 17 129/86 H 99 - Physical Exam General Appearance: positive: Alert Eyes Bilateral: positive: PERRL, EOMI Neck: positive: No JVD, Trachea midline Respiratory: positive: No respiratory distress Cardiovascular: positive: Regular rate & rhythm Abdomen: positive: Non-tender, No distention Neurologic/Psychiatric: positive: Oriented x3 Conclusion/Plan - Problem List (1) Colon cancer screening Conclusion/Plan: plan colonoscopy. parq held and consent obtained
--- NOTE | 2023-07-09 07:53 | ANESTHESIA ---
Pre-Anesthesia VS, & Labs - Diagnosis History of colon polyps - Procedure colonoscopy Vital Signs: Temp Pulse Resp BP Pulse Ox O2 Flow Rate 36.5 C 71 17 129/86 H 99 07/09/23 06:30 07/09/23 06:30 07/09/23 06:30 07/09/23 06:30 07/09/23 06:30 Height: 5 ft 8 in Weight (kg): 112 kg Body Mass Index: 37.5 BMI Classification: Obese - NPO >8 hours - Is Patient ?: No Home Medications and Allergies Home Medications: Ambulatory Orders Atorvastatin Calcium 40 mg PO DAILY 07/08/23 Telmisartan [Micardis] 80 mg PO DAILY 07/30/20 Timolol 0.5% Ophth Drops [Timoptic 0.5% Ophth Drops] 1 drops EACHEYE TID 12/13/21 amLODIPine [Norvasc] 5 mg PO QPM 12/13/21 Atorvastatin Calcium 40 mg PO DAILY 07/08/23 Allergies/Adverse Reactions: Allergies Allergy/AdvReac Type Severity Reaction Status Date / Time celecoxib [From Celebrex] Allergy Unknown Verified 12/30/22 12:57 hydrochlorothiazide Allergy Headache Verified 12/30/22 12:57 Anes History & Medical History - Anesthetic History Anesthesia Complications: reports: No previous complications, Slow wake-up - Medical History Cardiovascular: reports: Hypertension, High cholesterol Pulmonary: reports: Sleep apnea, CPAP use Gastrointestinal: reports: None, Colon polyps Urinary: reports: None Neuro: reports: None Musculoskeletal: reports: Osteoarthritis, Chronic back pain, Other Endocrine/Autoimmune: reports: None Blood Disorders: reports: None Skin: reports: None Smoking Status: Never smoker Psychosocial: reports: No issues indicated - Surgical History General: reports: Cholecystectomy, Colonoscopy Gynecologic: reports: section, Hysterectomy Orthopedic: reports: Hip replacement, Other Exam General: Alert, Oriented x3, Cooperative, No acute distress Dental: WNL Mouth Openin Fingerbreadth Neck Mobility: Normal Mallampati classification: II Thyromental Distance: 4-6 cm Mental/Cognitive Status: Alert/Oriented X3, Normal for patient Plan Anesthesia Type: General, Total IV Consent for Procedure(s) Verified and Reviewed: Yes Code Status: Attempt Resuscitation ASA classification: 2-Mild systemic disease Is this case an emergency?: No
[2023-07-09 08:51] VITALS: BP 118/83; O2SAT 100
--- NOTE | 2023-07-09 11:19 | ANESTHESIA POST OP EVALUATION ---
Anesthesia Post Eval - Post Anesthesia Eval Vitals: Last Vital Signs Temp 36.2 C L 07/09/23 08:45 Pulse 66 07/09/23 08:45 Resp 16 07/09/23 08:45 BP 118/83 H 07/09/23 08:45 Pulse Ox 100 07/09/23 08:45 O2 Flow Rate CV Function Including HR & BP: Stable Pain Control: Satisfactory Nausea & Vomiting: Negative Mental Status: Baseline Respiratory Status: Airway Patent Hydration Status: Satisfactory Anesthesia Complications: None
== END 2023-07-09 06:27 | disposition home or self-care (01) ==
LOC: SDS 06:26
PROVIDERS: ATTEND Surgery
PROC: 0DBH8ZZ Excision of Cecum, Via Natural or Artificial Opening Endoscopic (ICD-10-PCS; principal; 2023-07-09 07:30)
DX: Z12.11 Encounter for screening for malignant neoplasm of colon (principal); D12.0 Benign neoplasm of cecum; K57.30 Diverticulosis of large intestine without perforation or abscess without bleeding; K64.9 Unspecified hemorrhoids; E66.9 Obesity, unspecified; Z68.37 Body mass index [BMI] 37.0-37.9, adult; G47.30 Sleep apnea, unspecified; I10 Essential (primary) hypertension
CPT/HCPCS: 45380; J7120

== ENCOUNTER 2023-11-05 13:49 | Outpatient (CLI) | payer OTHER ==
--- NOTE | 2023-11-05 14:18 | Sleep Patient Instructions ---
Sleep Center Visit Summary - Patient Visit Information Reason for Visit: 6-month follow-up - Patient Instructions Additional Instructions: You were here for follow up of CPAP therapy. You will be continued on CPAP therapy with pressure at 10-14 cmH2O. You should follow up with sleep care in 12 months. You may contact us sooner for any questions or concerns. - Clinic Information Contact: [facility] [address] [place] [address] [email or web address] T: [phone]
--- NOTE | 2023-11-05 14:25 | SLEEP CARE CONSULTATION ---
Information from patient questionnaire entered by Cliff Gibson. I have reviewed and concur with the information entered by Cliff Gibson. This document represents the service I personally performed and the decisions made by me, Dagmar West ARNP. History of Present Illness Service Date and Time: 11/05/2023 1349 Previous diagnosis: Mild, Obstructive Sleep Apnea-Hypopnea Syndrome AHI: 11.5 (in 2022) Reason for follow up: six month Equipment type: CPAP (RESMED Airsense 10, s/u 05/2022) Equipment obtained from: Other ([facility]; getting supplies) Mask style: Full face Mask brand: [email or web address] ([employer]plus) Backup mask available: Yes Last cushion change: 3 weeks Prior sleep studies: No Type of Sleep Study: Polysomnography (COMPLETED 05/01/22) HPI additional information: DENISE CARL was diagnosed to have mild, AHI 11.5, obstructive sleep apnea- hypopnea syndrome and returned today for CPAP therapy six month follow-up. Sleep Study - Results Type of Sleep Study: Polysomnography (COMPLETED 05/01/22) Prior sleep studies: No CPAP Compliance Data - Data Reviewed with Patient Average duration of nightly device use: 5 HRS 50 MINS Compliance rate %: 81 (04/28/23-11/03/23; 165/180 days used) Current pressure setting (cmH2O): 10-14 Average residual AHI: 1.5 Central apnea: 0.1 Obstructive apnea: 0.8 Hypopnea: 0.6 Average large leak: 5.2 L/min Subjective Missed days of use due to: reports: other (taking mask off while sleeping) Patient concerns: reports: mask discomfort, air blowing in eyes, mask leak noise, dry mouth, nose, throat (sometimes). denies: aerophagia, condensation in mask/hose, nasal congestion, epistaxis Observed to snore while using device: No Current pressure setting perceived as: comfortable On therapy, patient: reports: being more awake and alert during the day, other (she feels like she is tired a lot). denies: drowsiness while driving Initial [place] Sleepiness Scale score: 13 (03/31/22) Current [place] Sleepiness Scale score: 13 (11/05/23) Allergies and Home Medications Known drug allergies: Yes (as listed) Drug allergies reviewed: Yes Home medication list reviewed: Yes (no changes) Allergy and home medication list: Allergies celecoxib [From Celebrex] Allergy (Verified 11/05/23 13:50) Unknown hydrochlorothiazide Allergy (Verified 11/05/23 13:50) Headache broke out in hives it is a water pill thinks this is it Review of Systems Review of systems same as previous: No (bursitis left shoulder; mild arthritis right shoulder) Physical Exam Vital signs obtained and entered by: CLIFF Garcia MA Blood Pressure: 147/89 (RIGHT ARM) Cuff size: long Heart Rate: 77 O2 Saturation: 93 Height: 5 ft 8 in Weight: 250 lb 3.2 oz Weight change since last visit: 5 lb gain Body Mass Index: 38.0 BMI Classification: Obese Impression and Plan 1. Obstructive Sleep Apnea-Hypopnea Syndrome, mild, with good treatment compliance and good apnea control. On CPAP therapy, the patient does not feel like she is sleeping better overall. She only averages just under 6 hours of sleep and I advised that she try to increase her sleep to about 7 hours to feel more rested. She voiced understanding. She has significant improvement of her sleep apnea. She has had difficulty with the full face mask. She is waiting on a new mask shipment from her DME. She hopes it will work better and leak less than the other mask. Patient's apnea severity and rationale for treatment to reduce apnea, improve sleep quality and reduce cardiovascular and cerebrovascular events was reviewed. I also reviewed the benefit of consistent device use of CPAP for hypertension, insulin resistance. 2. Obesity, unspecified. Currently patients BMI is 38. Obesity increases the risk of apnea, CPAP pressure requirements and overall health risks especially cardiovascular and diabetes. Thus patient is advised to lose weight. * Continue auto CPAP pressure at 10-14 cmH2O * Update supply prescription. * Notify me if snoring with mask or feeling that the pressure is too much or too little * Attempt to lose weight * Call this office if any problems using CPAP * Return for follow up in 12 months, or sooner if concerns arise Counseling Topics: Spare mask, Weight loss health impact Prescriptions: Device supplies Follow up with Sleep Care in: 1 year Visit Type: In Office Time Spent with Patient (minutes): 22 Provider Statement: I spent 100% of the Face to Face Visit with the patient with greater than 50% spent counseling the patient and coordination of care.
[2023-11-05 14:28] VITALS: BP 147/89; O2SAT 93
== END 2023-11-05 13:50 | disposition home or self-care (01) ==
LOC: SC 13:49
PROVIDERS: ATTEND Nurse Practitioner Family
DX: G47.33 Obstructive sleep apnea (adult) (pediatric) (principal); E66.9 Obesity, unspecified; Z68.38 Body mass index [BMI] 38.0-38.9, adult
CPT/HCPCS: 99212; 99213